=== PATIENT | female | born 1950 | race Caucasian/White ===

== ENCOUNTER → 2017-12-31 09:27 | Outpatient (CLI) | payer MEDICARE, SELFPAY ==
--- NOTE | 2017-12-31 | XR_ITS ---
XR wrist RT min 3V COMPARISON: None HISTORY: Right wrist pain after a fall TECHNIQUE: AP lateral and oblique views FINDINGS: There is mild spurring of the ulnar side of the trapezium bone and mild spurring at the base of first metacarpal. The carpal bones all appear intact with no fracture seen. The soft tissues are normal, the pronator quadratus fat pad is seen which is a normal finding. IMPRESSION: Minor arthritic changes at the first carpometacarpal joint, no fracture seen
[2017-12-31 10:18] LABS: Hemoglobin A1C 6.4 % (0.0-7.0)
[2017-12-31 11:02] LABS: Alanine Aminotransferase 32 U/L (12-78); Albumin Level 3.9 gm/dL (3.4-5.0); Albumin/Globulin Ratio 1.1 (1.1-1.8); Alkaline Phosphatase 78 U/L (46-116); Anion Gap 16.2 mEq/L (5-15); Aspartate Amino Transferase 14 U/L (15-37); Bilirubin,Total 0.5 mg/dL (0.2-1.0); Blood Urea Nitrogen 20 mg/dL (7-18); Calcium 9.1 mg/dL (8.5-10.1); Carbon Dioxide 25 mmol/L (21.0-32.0); Chloride 105 mmol/L (98-107); Chol/HDL Ratio 4.2 (1-3.5); Cholesterol 157 mg/dL (140-200); Creatinine,Serum 0.78 mg/dL (0.55-1.02); Estimated Glomerular Filt Rate 74 ml/min (>60); GFR (African American) 89 ML/MIN (>60); Globulin 3.5 gm/dl (1.3-3.2); Glucose 153 mg/dL (74-106); HDL Cholesterol 37 mg/dL (29-89); LDL Cholesterol 58 mg/dL (0-130); Potassium 4.2 mmoL/L (3.5-5.1); Sodium 142 mmol/L (136-145); Total Protein,Serum 7.4 gm/dL (6.4-8.2); Triglycerides 310 mg/dL (30-200); VLDL Cholesterol 62 mg/dL (0-40)
[2018-01-01 17:17] LABS: Microalbumin, Urine 3.3 ug/mL (Not Estab.)
== END ==
PROVIDERS: PCP Internal Medicine; Visit Provider Internal Medicine
DX: E11.42 Type 2 diabetes mellitus with diabetic polyneuropathy (principal); I10 Essential (primary) hypertension; E78.5 Hyperlipidemia, unspecified; R10.11 Right upper quadrant pain; M25.531 Pain in right wrist
CPT/HCPCS: 36415; 73110; 80053; 80061; 82043; 83036

== ENCOUNTER → 2018-01-26 08:38 | Outpatient (CLI) | payer MEDICARE, SELFPAY ==
--- NOTE | 2018-01-26 08:42 | CT_ITS ---
CT abdomen pelvis w con CLINICAL INDICATION: ITS.REASON: RUQ PAIN, POSSIBLE HERNIA ORDERING PHYSICIAN: Ronan Fink MD PATIENT AGE: 67 years COMPARISON: 03/07/2013 TECHNIQUE: Axial images obtained with sagittal and coronal reformats. All CT scans at the facility use one or more dose reduction, viz: automated exposure control; ma/kV adjustment per patient size (including targeted exams where dose is matched to indication; i.e. head); or iterative reconstruction technique. PROCEDURE: Oral Contrast: Redicat IV Contrast: 75 mL's of Isovue-370 . FINDINGS: There is a 6 mm noncalcified nodule in left lung base laterally not significant changed. Mild hepatic steatosis with slight increased density is present in the hepatic dome the right hepatic lobe probably related to differential perfusion. No focal liver lesion is evident. There has been prior cholecystectomy. Spleen is unremarkable. There are bilateral adrenal nodules measuring up to 2 cm x 2 cm on the left and 2 cm x 1.2 cm on the right. Not significantly changed consistent with adenomas. The pancreas is unremarkable. No hydronephrosis or obstructing renal or ureteral calculi. The right kidney is slightly low lying. There is a mildly prominent right lobe of the liver. There has been a prior cholecystectomy. The patient's abdominal wall is somewhat redundant folding toward the right. No definite abdominal wall hernia however is evident. No intestinal obstruction or free air. Prior hysterectomy. No pelvic mass or focal inflammatory change. No evidence of appendicitis or diverticulitis. No acute bony anomalies. IMPRESSION: 1. No acute finding. No evidence of abdominal wall hernia. 2. Stable bilateral adrenal nodules. 3. Small area wedge shaped enhancement in the hepatic dome probably related to differential flow phenomenon
== END ==
PROVIDERS: Family Provider Internal Medicine; PCP Internal Medicine; Visit Provider Surgery
DX: K43.2 Incisional hernia without obstruction or gangrene (principal); R10.11 Right upper quadrant pain
CPT/HCPCS: 36415; 74177; 82565; 84520; Q9967

== ENCOUNTER → 2018-08-14 10:29 | Outpatient (CLI) | payer MEDICARE, SELFPAY | PROVIDERS: PCP Internal Medicine; Visit Provider Colon & Rectal Surgery | DX: Z01.810 Encounter for preprocedural cardiovascular examination (principal); K62.89 Other specified diseases of anus and rectum; E11.59 Type 2 diabetes mellitus with other circulatory complications | CPT/HCPCS: 93005 ==

== ENCOUNTER → 2018-08-29 08:39 | Outpatient (CLI) | payer MEDICARE, SELFPAY ==
[2018-08-29 09:53] LABS: Hemoglobin A1C 6.8 % (0.0-7.0)
[2018-08-29 12:02] LABS: Alanine Aminotransferase 27 U/L (12-78); Albumin Level 3.8 gm/dL (3.4-5.0); Albumin/Globulin Ratio 1.1 (1.1-1.8); Alkaline Phosphatase 84 U/L (46-116); Aspartate Amino Transferase 18 U/L (15-37); Bilirubin,Total 0.6 mg/dL (0.2-1.0); Blood Urea Nitrogen 18 mg/dL (7-18); Calcium 9.1 mg/dL (8.5-10.1); Carbon Dioxide 27 mmol/L (21.0-32.0); Chloride 103 mmol/L (98-107); Chol/HDL Ratio 4.3 (1-3.5); Cholesterol 165 mg/dL (140-200); Creatinine,Serum 0.72 mg/dL (0.55-1.02); Estimated Glomerular Filt Rate 81 ml/min (>60); GFR (African American) 98 ML/MIN (>60); Globulin 3.4 gm/dl (1.3-3.2); Glucose 150 mg/dL (74-106); HDL Cholesterol 38 mg/dL (29-89); LDL Cholesterol 66 mg/dL (0-130); Sodium 142 mmol/L (136-145); Total Protein,Serum 7.2 gm/dL (6.4-8.2); Triglycerides 306 mg/dL (30-200); VLDL Cholesterol 61 mg/dL (0-40)
[2018-08-30 15:59] LABS: Microalbumin, Urine 6.8 ug/mL (Not Estab.)
== END ==
PROVIDERS: PCP Internal Medicine; Visit Provider Internal Medicine
DX: E11.42 Type 2 diabetes mellitus with diabetic polyneuropathy (principal); E78.5 Hyperlipidemia, unspecified; I10 Essential (primary) hypertension
CPT/HCPCS: 36415; 80053; 80061; 82043; 83036

== ENCOUNTER → 2018-10-26 08:47 | Outpatient (CLI) | payer MEDICARE, SELFPAY ==
--- NOTE | 2018-10-26 08:55 | MM_ITS ---
MM Dig screening mamm BI w/CAD CAD Screening COMPARISON: Digital right mammogram 05/04/2017 and bilateral digital mammograms with CAD 04/21/2017 INDICATION: There is no personal or family history of breast cancer. TECHNIQUE: Standard CC and MLO images were obtained. R2 CAD reviewed. FINDINGS: The breasts are composed primarily of fat with minimal scattered benign-appearing calcifications in each breast. Minimal fibroglandular densities are seen in the subareolar regions of each breast. There is a biopsy clip deep to the nipple right breast from the recent biopsy for benign disease. There is a mole marker left breast. There is a stable benign-appearing nodular density upper outer quadrant left breast. There is no suspicious lesion and no suspicious microcalcifications. IMPRESSION: Fatty type breast parenchyma with no suspicious lesion seen BI-RADS Category: 2 Benign Finding(s) RECOMMENDED FOLLOW-UP: 1YR - 1 YEAR FOLLOW-UP (A letter has been sent to the patient regarding results of the study.)
== END ==
PROVIDERS: PCP Internal Medicine; Visit Provider Internal Medicine
DX: Z12.31 Encounter for screening mammogram for malignant neoplasm of breast (principal)
CPT/HCPCS: 77067

== ENCOUNTER → 2019-01-01 15:07 | Outpatient (CLI) | payer MEDICARE, SELFPAY ==
--- NOTE | 2019-01-01 15:17 | XR_ITS ---
XR knee LT 3V HISTORY: ITS.REASON: LEFT KNEE PAIN ORDERING PHYSICIAN: Issa Ribera PATIENT AGE: 68 years COMPARISON: 07/03/2013 FINDINGS: There are mild osteoarthritic changes of the medial compartment and patellofemoral joint. No acute fracture or dislocation. No lytic or blastic change. IMPRESSION: Mild osteoarthritis not significantly changed
== END ==
PROVIDERS: PCP Internal Medicine; Visit Provider Internal Medicine
DX: M25.562 Pain in left knee (principal)
CPT/HCPCS: 73562

== ENCOUNTER → 2019-03-06 09:10 | Outpatient (CLI) | payer MEDICARE, SELFPAY ==
--- NOTE | 2019-03-06 09:33 | XR_ITS ---
XR chest 2V HISTORY: Tuberculosis, history of TB ITS.REASON: H/O TB ORDERING PHYSICIAN: Sylvia Riley PATIENT AGE: 69 years COMPARISON: 12/31/2016 FINDINGS: The cardiomediastinal silhouette and pulmonary vascularity are within normal limits. The lungs are clear without infiltrates, suspicious nodules, or pleural effusions. No acute bony abnormalities. IMPRESSION: No change with no acute finding
[2019-03-06 09:57] LABS: Basophils # 0.1 K/mm3 (0-0.2); Eosinophils # 0.1 K/mm3 (0.0-0.4); Eosinophils % 0.9 % (0.1-12.0); Hematocrit 41.4 % (37.0-47.0); Hemoglobin 13.7 g/dL (12.2-16.2); Lymphocytes # 2.4 K/mm3 (0.7-4.5); Lymphocytes % 35.6 % (10-50); Mean Corpuscular HGB Conc 33.1 g/dL (31.8-35.4); Mean Corpuscular Hemoglobin 28.6 pg (27.0-31.2); Mean Corpuscular Volume 86.4 fl (81-99); Monocytes # 0.3 K/mm3 (0.1-1.0); Monocytes % 4.6 % (1.7-9.3); Neutrophils # 3.8 K/mm3 (1.8-7.8); Neutrophils % 57.9 % (37.0-80.0); Platelet Count 199 K/mm3 (142-424); Red Cell Distribution Width 12.8 % (11.5-17.5); White Blood Count 6.6 K/mm3 (4.8-10.8)
[2019-03-06 22:11] LABS: Blood Urea Nitrogen 17 mg/dL (7-18); Calcium 9.2 mg/dL (8.5-10.1); Carbon Dioxide 25 mmol/L (21.0-32.0); Chloride 105 mmol/L (98-107); Creatinine,Serum 0.76 mg/dL (0.55-1.02); Estimated Glomerular Filt Rate 76 ml/min (>60); GFR (African American) 92 ML/MIN (>60); Glucose 152 mg/dL (74-106); Sodium 143 mmol/L (136-145)
== END ==
PROVIDERS: PCP Internal Medicine; Visit Provider Colon & Rectal Surgery
DX: K62.5 Hemorrhage of anus and rectum (principal)
CPT/HCPCS: 36415; 71046; 80048; 85025; 93005

== ENCOUNTER → 2019-03-09 09:45 | Outpatient (CLI) | payer MEDICARE, SELFPAY ==
--- NOTE | 2019-03-09 09:47 | US_ITS ---
US abdomen limited History:Abdominal pain Ordering Physician:Issa Ribera Patient Age: 69 years Comparison:None Findings: Pancreas:Unremarkable. No obvious mass or abnormal fluid collection. No ductal dilatation Liver:Fatty liver. No focal liver lesions demonstrated Right Kidney:There is cortical atrophy of the right kidney. No hydronephrosis Gallbladder:Prior cholecystectomy Impression:Fatty liver, status post cholecystectomy, otherwise negative right upper quadrant ultrasound
== END ==
PROVIDERS: PCP Internal Medicine; Visit Provider Internal Medicine
DX: R10.11 Right upper quadrant pain (principal); R11.0 Nausea
CPT/HCPCS: 76705

== ENCOUNTER → 2019-06-12 11:00 | Outpatient (CLI) | payer MEDICARE, SELFPAY ==
--- NOTE | 2019-06-12 11:12 | XR_ITS ---
XR finger RT min 2V CLINICAL INDICATION: Follow-up surgery ITS.REASON: right middle digit sx follow up ORDERING PHYSICIAN: Frankie Falcon MD PATIENT AGE: 69 years Comparison: 04/26/2019 FINDINGS: Previously noted flexion of the DIP has improved. Mild osteoarthritic changes are present at the DIP. There is a lucency noted along the radial and proximal aspect of the distal phalanx which could be due to a nondisplaced fracture IMPRESSION: Improvement in the flexion deformity at the DLP joint with possible nondisplaced fracture of the distal phalanx
== END ==
PROVIDERS: PCP Internal Medicine; Visit Provider Orthopaedic Surgery
DX: S61.401A Unspecified open wound of right hand, initial encounter; S66.821A Laceration of other specified muscles, fascia and tendons at wrist and hand level, right hand, initial encounter
CPT/HCPCS: 73140

== ENCOUNTER → 2021-08-03 20:41 | Outpatient (CLI) | payer MEDICARE, SELFPAY ==
[2021-08-03 20:54] LABS: Basophils # 0.1 K/mm3 (0-0.2); Eosinophils # 0.1 K/mm3 (0.0-0.4); Eosinophils % 1.2 % (0.1-12.0); Hematocrit 40.3 % (37.0-47.0); Hemoglobin 12.9 g/dL (12.2-16.2); Lymphocytes # 2.6 K/mm3 (0.7-4.5); Lymphocytes % 35.8 % (10-50); Mean Corpuscular Volume 90.4 fl (81-99); Mean Platelet Volume 10.3 fl (7.4-10.4); Monocytes # 0.4 K/mm3 (0.1-1.0); Monocytes % 6.1 % (1.7-9.3); Neutrophils # 4.1 K/mm3 (1.8-7.8); Neutrophils % 55.8 % (37.0-80.0); Platelet Count 229 K/mm3 (142-424); Red Blood Count 4.46 M/mm3 (4.20-5.40); Red Cell Distribution Width 13.4 % (11.5-17.5); White Blood Count 7.3 K/mm3 (4.8-10.8)
[2021-08-03 21:13] LABS: Hemoglobin A1C 7.1 % (4.0-6.0)
[2021-08-03 21:49] LABS: Chloride 106 mmol/L (98-107); Potassium 4.2 mmoL/L (3.5-5.1); Sodium 142 mmol/L (136-145)
[2021-08-03 21:51] LABS: Amylase 39 U/L (30-110); Blood Urea Nitrogen 16 mg/dl (7-17); Estimated Glomerular Filt Rate 83 ml/min (>60); GFR (African American) 100 ML/MIN (>60)
[2021-08-03 21:52] LABS: Alanine Aminotransferase 15 U/L (12-78); Albumin Level 3.8 g/dl (3.5-5.0); Albumin/Globulin Ratio 1.4 (1.1-1.8); Alkaline Phosphatase 88 U/L (38-126); Anion Gap 12.2 mEq/L (5-15); Aspartate Amino Transferase 20 U/L (14-36); Bilirubin,Total 0.3 mg/dl (0.2-1.3); Calcium 8.7 mg/dl (8.4-10.2); Carbon Dioxide 28 mmol/L (22.0-30.0); Globulin 2.7 g/dL (1.3-3.2); Glucose 146 mg/dl (74-100); Total Protein,Serum 6.5 g/dl (6.3-8.2)
== END ==
PROVIDERS: Visit Provider Internal Medicine
DX: R10.13 Epigastric pain (principal); E11.42 Type 2 diabetes mellitus with diabetic polyneuropathy
CPT/HCPCS: 80053; 82150; 83036; 85025

== ENCOUNTER → 2021-09-14 11:07 | Outpatient (CLI) | payer MEDICARE, SELFPAY | PROVIDERS: Visit Provider Surgery | DX: Z01.812 Encounter for preprocedural laboratory examination (principal); Z11.52 Encounter for screening for COVID-19; Z13.810 Encounter for screening for upper gastrointestinal disorder; R10.13 Epigastric pain | CPT/HCPCS: C9803; U0003; U0005 ==

== ENCOUNTER → 2021-09-16 11:14 | Day surgery (SDC) | payer MEDICARE, SELFPAY ==
[2021-09-14 12:18] VITALS: BMI 38.6
[2021-09-16 11:44] VITALS: BP 133/74; PULSE 64; RESP 18; TEMP 36.6; O2SAT 96
--- NOTE | 2021-09-16 12:03 | P.PN_ITS ---
[facility] Anesthesia Checklist - Patient Identification Patient Identification: Arm Band - Structural Data Admitted From: Home Planned Operative Procedure/s: egd Consent for Planned Operative Procedure(s) Verified: Yes Verified Documents: Surgical Consent, History and Physical - NPO Status Verified Time NPO: 00:00 - Additional verifications Anesthesia Reactions: No Hx Blood Transfusions: No Blood Transfusion Reaction: No - Airway Assessment C-Spine Mobility Assessed: Yes (mp2) TMJ Mobility Assessed: Yes Dentition: Good Dentition (lower. upper edentulous) - Neurological Assessment Level of Consciousness: Awake, Alert - Anesthesia Plan Anesthesia Risk discussed: Yes Anesthesia Plan: Verified ASA Class: III Anesthesia Type: MAC [facility] History I have reviewed the patient's past medical history: Yes Medical History: Reports:: Diabetes Mellitus Type 2, Hiatal Hernia, Hyperlipidemia, Hypertension Denies:: Cancer, Diabetes Mellitus Type 1, Internal Pacemaker, MRSA, Seizures *Have you ever received a pneumonia vaccine?: No *Have you received a flu vaccine this season?: No Other Medical History: Denies: Blood Transfusion Reaction Anesthesia experience/problems:: nac Laterality Cases: Right: Other Other Surgeries: Yes: Colonoscopy. No: Pacemaker Amputation: No Fractures: No - *Social History Last grade of school completed: High school graduate Smoking Status: Never smoker Alcohol Intake: never Alcohol Intake Frequency:: other Substance Use Type: denies use *Occupational Status:: retired Housing: house Household Members: spouse *Travel in the last 8 weeks: Inside the [facility] Family Hx:: Cancer
[2021-09-16 12:06] VITALS: O2SAT 98
[2021-09-16 12:17] VITALS: BP 136/74; PULSE 68; RESP 18; TEMP 36.1; O2SAT 93
--- NOTE | 2021-09-16 12:18 | HMH.SCOPE ---
- Procedure: Date: 09/16/21 Patient Date of :: 1950 Procedure Performed:: Esophagogastroduodenoscopy with biopsies Indications:: Patient is a 71-year-old female referred by Dr. Issa Ribera for upper endoscopy. I had previously seen her years ago for right upper quadrant pain with possible recurrent incisional hernia. She had undergone open cholecystectomy many years ago and had an incisional hernia repair by Dr. Drake. She describes postprandial epigastric pain. This occurs about 10 to 15 minutes postprandially. There are no particular foods which seem to be more problematic. She does state that she has a hiatal hernia and wonders if this is the issue. She describes some epigastric soreness. She states that this is been ongoing for 2 months. Interestingly, the patient states that she had a prescription called in for possible: Bowel prep. She has undergone multiple colonoscopies and upper endoscopy. Previous endoscopic procedures are as follows: 11/26/2004: EGD by Dr. Drake which revealed hiatal hernia for dysphagia 02/13/2009: Colonoscopy by Dr. Drake which was normal 06/27/2014: EGD by Dr. Drake which was normal. 09/05/2014: Colonoscopy by Dr. Drake which was normal 01/17/2017: Colonoscopy by Brown Sanders MD which revealed multiple polyps, diverticulosis, anal fissure with mild anal stenosis, internal hemorrhoids which were banded. Repeat colonoscopy was recommended in 3 years. Plan was made to proceed with upper endoscopy. Patient is due for colonoscopy based on previous colonoscopy by Dr. Sanders 4 years ago but she wishes to wait a couple of months for this. Performing Provider:: Ronan Fink MD Referring Provider:: Issa Ribera MD Sedation:: MAC sedation Procedure:: Patient was taken to endoscopy procedure room. She was positioned in lateral decubitus position. Adequate intravenous sedation was achieved with anesthesia titration of propofol. Olympus endoscope was inserted via the oropharynx. Esophagus was cannulated. Overall esophagus appeared unremarkable. Gastroesophageal junction was encountered at approximately 37 cm from the incisors. Stomach was cannulated and insufflated. Retroflexion revealed extremely small hiatal hernia, virtually inconsequential. There was some diffuse moderate nonerosive gastritis and gastropathy. She had findings of prepyloric submucosal nodules possibly consistent with adenopathy. Gastric antral mucosal biopsy was obtained for CLOtest for H. pylori. Pylorus was traversed. Duodenum appeared unremarkable. Endoscope was withdrawn into the gastric lumen. Multiple biopsies were obtained within the antrum of the submucosal nodules . Additional biopsies obtained of the mid gastric body. Multiple biopsies were obtained of the gastroesophageal junction to assess for findings of Devi's esophagus. Stomach was desufflated and the scope was withdrawn. Findings:: Moderate nonerosive gastritis with gastropathy with some slight mucosal antral nodularity possibly consistent with lymphadenopathy Extremely tiny hiatal hernia Recommendations:: Plan to follow-up on the biopsy results and treat appropriately Complications:: None immediately apparent Estimated blood obtained (mL): 3
[2021-09-16 12:25] VITALS: BP 130/77; PULSE 63; RESP 18; O2SAT 98
[2021-09-16 12:35] VITALS: BP 136/78; PULSE 64; RESP 18; O2SAT 98
[2022-08-05 10:54] LABS: POC Glucose,Bedside 113 (70-110)
== END ==
PROVIDERS: PCP Internal Medicine; Visit Provider Surgery
PROC: 0DJ08ZZ Inspection of Upper Intestinal Tract, Via Natural or Artificial Opening Endoscopic (ICD-10-PCS; CPT 43235; principal; 2021-09-16 12:30)
DX: K29.60 Other gastritis without bleeding (principal); K31.9 Disease of stomach and duodenum, unspecified; R59.0 Localized enlarged lymph nodes; K44.9 Diaphragmatic hernia without obstruction or gangrene; Z90.49 Acquired absence of other specified parts of digestive tract; Z86.010 Personal history of colon polyps; E11.9 Type 2 diabetes mellitus without complications; E78.5 Hyperlipidemia, unspecified; I10 Essential (primary) hypertension; Z80.9 Family history of malignant neoplasm, unspecified; Z88.1 Allergy status to other antibiotic agents; Z79.899 Other long term (current) drug therapy
CPT/HCPCS: 43239; 82962; 87339; 88305

== ENCOUNTER → 2022-01-25 11:38 | Outpatient (CLI) | payer MEDICARE, SELFPAY ==
[2022-01-27 04:10] LABS: H. pylori Stool Ag, EIA Negative (Negative)
== END ==
PROVIDERS: Visit Provider Surgery
DX: R10.11 Right upper quadrant pain (principal)
CPT/HCPCS: 87338

== ENCOUNTER → 2022-03-17 16:29 | Outpatient (CLI) | payer MEDICARE, SELFPAY | PROVIDERS: PCP Internal Medicine; Visit Provider Surgery | DX: Z01.812 Encounter for preprocedural laboratory examination (principal); Z11.52 Encounter for screening for COVID-19; Z12.11 Encounter for screening for malignant neoplasm of colon | CPT/HCPCS: C9803; U0003; U0005 ==

== ENCOUNTER 2022-03-19 10:33 | Day surgery (SDC) | payer MEDICARE, SELFPAY ==
[2022-03-19 10:49] VITALS: BP 144/83; PULSE 66; RESP 18; TEMP 36.7; O2SAT 95; BMI 38.7
--- NOTE | 2022-03-19 10:56 | P.PCN_ITS ---
- Procedure: Date: 03/19/22 Patient Date of :: 1950 Procedure Performed:: Total colonoscopy to terminal ileum with polypectomy using snare and biopsy Indications:: Patient presents for colonoscopy. She is a 72-year-old female whom I had performed EGD after referral by Dr. Issa Ribera.? I had previously seen her years ago for right upper quadrant pain with possible recurrent incisional hernia.? She had undergone open cholecystectomy many years ago and had an incisional hernia repair by Dr. Drake.? She had some postprandial epigastric pain occurring approximately 10-15 minutes postprandially with some epigastric soreness.? She has undergone multiple colonoscopies and upper endoscopy.? Previous endoscopic procedures are as follows: 11/26/2004: EGD by Dr. Drake which revealed hiatal hernia 02/13/2009: Colonoscopy by Dr. Drake which was normal 06/27/2014: EGD by Dr. Drake which was normal. 09/05/2014: Colonoscopy by Dr. Drake which was normal 01/17/2017: Colonoscopy by Brown Sanders MD which revealed multiple (FIVE) mushtaq yps ranging in size from 5-9mm (pathology revealed all of these to be tubular adenomas), diverticulosis, anal fissure with mild anal stenosis, internal hemorrhoids which were banded.? Repeat colonoscopy was recommended in 3 years. That was 5 years ago. EGD performed on 09/16/2021 revealed extremely small hiatal hernia, H. pylori gastritis, biopsy proven reflux esophagitis. Patient was given a course of H. pylori eradication therapy. Follow-up stool for H. pylori is negative. Previous discussion was held with the patient months ago regarding her need for colonoscopy (as she was passed due) based on colonoscopy done January 2017 at which time 3-year follow-up was recommended. She wished to wait several months. Performing Provider:: Ronan Fink MD Referring Provider:: Issa Ribera MD Sedation:: MAC sedation Procedure:: Patient was taken to endoscopy procedure room. She was positioned in lateral decubitus position. Adequate intravenous sedation was achieved with anesthesia titration propofol. Digital examination was performed which revealed some mild anal stenosis. Variable stiffness Olympus colonoscope was inserted via the anus. Is advanced to the cecum. This did require some abdominal pressure due to significant redundancy/floppiness of the sigmoid colon. Ileocecal valve and appendiceal orifice were clearly identified. Colonoscope was slowly withdrawn through the colon with careful surveillance. In the descending colon there was a moderate 6 to 8 mm adenomatous appearing polyp removed with cutting snare. In the sigmoid colon there was a possible polyp versus traction polyp removed with cutting snare. In the distal sigmoid colon there was a small polyp removed with cutting snare with residual polypoid tissue removed with biopsy forceps. She had some sigmoid diverticulosis. Retroflexion within the rectum revealed possible, probable, anal papilla. To rule out adenomatous change this was biopsied with biopsy forceps and labeled anorectal lesion . Colonoscope was withdrawn. Findings:: Redundancy of sigmoid colon Adenomatous descending polyp Possible sigmoid polyp Distal sigmoid polyp Anorectal papilla, biopsy Diverticulosis Anal stenosis Recommendations:: Follow-up colonoscopy pending pathology. Likely 3 to 5 years. Complications:: None immediately apparent Estimated blood obtained (mL): 2
[2022-03-19 11:03] LABS: POC Glucose,Bedside 129 (70-110)
[2022-03-19 11:04] VITALS: O2SAT 95
--- NOTE | 2022-03-19 11:08 | HMH.ANESCL ---
[facility] Anesthesia Checklist - Patient Identification Patient Identification: Arm Band - Structural Data Admitted From: Home Planned Operative Procedure/s: Colonoscopy Consent for Planned Operative Procedure(s) Verified: Yes - NPO Status Verified Time NPO: 00:00 - Additional verifications Anesthesia Reactions: No Hx Blood Transfusions: No Blood Transfusion Reaction: No - Airway Assessment C-Spine Mobility Assessed: Yes TMJ Mobility Assessed: Yes Dentition: Poor Dentition - Neurological Assessment Level of Consciousness: Awake Hx Seizures: No Numbness or tingling in extremities: No - Anesthesia Plan Anesthesia Risk discussed: Yes Anesthesia Plan: Verified ASA Class: III Anesthesia Type: MAC [facility] History I have reviewed the patient's past medical history: Yes Medical History: Reports:: Cerebrovascular Accident, Diabetes Mellitus Type 2, Hiatal Hernia, Hyperlipidemia, Hypertension Denies:: Cancer, Diabetes Mellitus Type 1, Internal Pacemaker, MRSA, Seizures *Have you ever received a pneumonia vaccine?: No *Have you received a flu vaccine this season?: Yes Other Medical History: Denies: Blood Transfusion Reaction Anesthesia experience/problems:: None Laterality Cases: Right: Other Other Surgeries: Yes: Colonoscopy. No: Pacemaker Amputation: No Fractures: No - *Social History Last grade of school completed: High school graduate Smoking Status: Never smoker Alcohol Intake: never Alcohol Intake Frequency:: other Substance Use Type: denies use *Occupational Status:: retired Housing: house Household Members: spouse *Travel in the last 8 weeks: None Family Hx:: Cancer, Diabetes
[2022-03-19 11:50] VITALS: BP 94/63; PULSE 65; RESP 18; TEMP 36.4; O2SAT 92
[2022-03-19 12:00] VITALS: BP 125/85; PULSE 65; RESP 18; O2SAT 96
[2022-03-19 12:18] VITALS: BP 116/79; PULSE 66; RESP 18; O2SAT 97
== END 2022-03-19 12:18 | disposition home or self-care (01) ==
LOC: OUTP 10:35
PROVIDERS: PCP Internal Medicine; Visit Provider Surgery
PROC: 0DJD8ZZ Inspection of Lower Intestinal Tract, Via Natural or Artificial Opening Endoscopic (ICD-10-PCS; principal; 2022-03-19 11:30)
DX: Z12.11 Encounter for screening for malignant neoplasm of colon (principal); D12.8 Benign neoplasm of rectum; K62.4 Stenosis of anus and rectum; K63.5 Polyp of colon; K57.30 Diverticulosis of large intestine without perforation or abscess without bleeding; K56.2 Volvulus; Z86.010 Personal history of colon polyps; Z87.19 Personal history of other diseases of the digestive system; E11.9 Type 2 diabetes mellitus without complications; E78.5 Hyperlipidemia, unspecified; I10 Essential (primary) hypertension; Z80.9 Family history of malignant neoplasm, unspecified; Z86.73 Personal history of transient ischemic attack (TIA), and cerebral infarction without residual deficits; Z88.1 Allergy status to other antibiotic agents; Z79.899 Other long term (current) drug therapy
CPT/HCPCS: 45380; 45385; 82962; 88305

== ENCOUNTER → 2022-04-17 08:08 | Outpatient (CLI) | payer MEDICARE, SELFPAY ==
[2022-04-17 09:06] LABS: Basophils # 0.1 K/mm3 (0-0.2); Basophils % 1.6 % (0.1-2.0); Eosinophils # 0.1 K/mm3 (0.0-0.4); Eosinophils % 1.3 % (0.1-12.0); Hematocrit 42.8 % (37.0-47.0); Hemoglobin 14.2 g/dL (12.2-16.2); Lymphocytes % 33.7 % (10-50); Mean Corpuscular HGB Conc 33.2 g/dL (31.8-35.4); Mean Corpuscular Hemoglobin 29.3 pg (27.0-31.2); Mean Corpuscular Volume 88.5 fl (81-99); Mean Platelet Volume 9.6 fl (7.4-10.4); Monocytes # 0.3 K/mm3 (0.1-1.0); Monocytes % 5.2 % (1.7-9.3); Neutrophils # 3.5 K/mm3 (1.8-7.8); Neutrophils % 58.2 % (37.0-80.0); Platelet Count 192 K/mm3 (142-424); Red Blood Count 4.84 M/mm3 (4.20-5.40); Red Cell Distribution Width 13.4 % (11.5-17.5)
[2022-04-17 09:41] LABS: Chloride 105 mmol/L (98-107); Potassium 4.2 mmoL/L (3.5-5.1); Sodium 142 mmol/L (136-145)
[2022-04-17 09:44] LABS: Anion Gap 10.2 mEq/L (5-15); Blood Urea Nitrogen 9 mg/dl (7-17); Carbon Dioxide 31 mmol/L (22.0-30.0); Estimated Glomerular Filt Rate 99 ml/min (>60); GFR (African American) 119 ML/MIN (>60)
[2022-04-17 09:45] LABS: Calcium 9.2 mg/dl (8.4-10.2); Glucose 178 mg/dl (74-100)
== END ==
PROVIDERS: PCP Internal Medicine; Visit Provider Surgery
DX: K62.9 Disease of anus and rectum, unspecified (principal); S61.401A Unspecified open wound of right hand, initial encounter; S66.821A Laceration of other specified muscles, fascia and tendons at wrist and hand level, right hand, initial encounter; Z01.812 Encounter for preprocedural laboratory examination; Z20.822 Contact with and (suspected) exposure to COVID-19
CPT/HCPCS: 36415; 80048; 85025; C9803; U0003; U0005

== ENCOUNTER 2022-04-19 09:43 | Day surgery (SDC) | payer MEDICARE, SELFPAY ==
[2022-04-14 13:20] VITALS: BMI 39.4
[2022-04-19] VITALS (12 sets, daily range): BP systolic 121–171; BP diastolic 68–97; PULSE 69–104; RESP 16–22; TEMP 36.6–36.8; O2SAT 92–98
[2022-04-19 10:24] LABS: POC Glucose,Bedside 134 (70-110)
--- NOTE | 2022-04-19 11:40 | P.PN_ITS ---
[facility] Anesthesia Checklist - Patient Identification Patient Identification: Arm Band - Structural Data Admitted From: Home Planned Operative Procedure/s: Transanal Excision of Rectal Lesion Consent for Planned Operative Procedure(s) Verified: Yes Verified Documents: Surgical Consent, History and Physical - NPO Status Verified Time NPO: 00:00 - Additional verifications Anesthesia Reactions: No Hx Blood Transfusions: No Blood Transfusion Reaction: No - Airway Assessment C-Spine Mobility Assessed: Yes (mp2) TMJ Mobility Assessed: Yes Dentition: Edentulous - Neurological Assessment Level of Consciousness: Awake, Alert - Anesthesia Plan Anesthesia Risk discussed: Yes Anesthesia Plan: Verified ASA Class: II Anesthesia Type: General [facility] History I have reviewed the patient's past medical history: Yes Medical History: Reports:: Cerebrovascular Accident, Diabetes Mellitus Type 2, Hiatal Hernia, Hyperlipidemia, Hypertension, MRSA Denies:: Cancer, Diabetes Mellitus Type 1, Internal Pacemaker, Seizures *Have you ever received a pneumonia vaccine?: Yes *Have you received a flu vaccine this season?: Yes Other Medical History: Denies: Blood Transfusion Reaction Anesthesia experience/problems:: nac Laterality Cases: Right: Other Other Surgeries: Yes: Cholecystectomy, Colonoscopy, Hysterectomy-Total, Other. No: Pacemaker Amputation: No Fractures: Yes (LT ANKLE) - *Social History Last grade of school completed: Some college Smoking Status: Never smoker Alcohol Intake: never Alcohol Intake Frequency:: other Substance Use Type: denies use *Occupational Status:: retired Housing: house Household Members: spouse *Travel in the last 8 weeks: None Family Hx:: Cancer, Diabetes
--- NOTE | 2022-04-19 13:42 | HMH.OPNOTE ---
Date of procedure: 04/19/22 Pre-op Diagnosis:: Intranasal papilloma Post-op Diagnosis:: Same Procedure performed:: Transanal excision of intra-anal lesion Surgeon:: Ronan Fink MD ESCALATOR INSTALLER:: Phuc Parmar Anesthesia: LMA Estimated blood loss (mL): 15 Clinical Note:: Patient presents for transanal excision of intra-anal lesion.? She is a 72-year-old female whom I had performed EGD after referral by Dr. Issa Ribera.? I had previously seen her years ago for right upper quadrant pain with possible recurrent incisional hernia.? She had undergone open cholecystectomy many years ago and had an incisional hernia repair by Dr. Drake.? She had some postprandial epigastric pain occurring approximately 10-15 minutes postprandially with some epigastric soreness.? She has undergone multiple colonoscopies and upper endoscopy.? Previous endoscopic procedures are as follows: 11/26/2004:? EGD by Dr. Drake which revealed hiatal hernia 02/13/2009:? Colonoscopy by Dr. Drake which was normal 06/27/2014:? EGD by Dr. Drake which was normal. 09/05/2014:? Colonoscopy by Dr. Drake which was normal 01/17/2017:? Colonoscopy by Brown Sanders MD which revealed multiple (FIVE) polyps ranging in size from 5-9mm (pathology revealed all of?these to be tubular adenomas), diverticulosis, anal fissure with mild anal stenosis, internal hemorrhoids which were banded.? Repeat colonoscopy was recommended in 3 years. That was 5 years ago. EGD performed on 09/16/2021 revealed extremely small hiatal hernia, H. pylori gastritis, biopsy proven reflux esophagitis. Patient was given a course of H. pylori eradication therapy.? Follow-up stool for H. pylori is negative.? She recently was seen in the office after recent colonoscopy. Colonoscopy was done on 03/19/2022. She was found to have some redundancy of the sigmoid colon. She had a tubular adenoma in the descending colon, sigmoid hyperplastic polyp, distal sigmoid tubular adenoma. There was a anorectal lesion which was biopsied and this returned as papilloma. She also has some anal stenosis and diverticulosis. The options were discussed with the patient when she was seen in the office. Given the fact that this returned as papilloma and not anal papilla plan was made to proceed with simple transanal excision. Operative findings:: Significant anal stenosis. Intra-anal lesion Operative note:: Patient was taken the operating room. She was positioned in supine position. General anesthesia was induced via LMA. She was repositioned in lithotomy position. Perineum was prepped and draped in the standard surgical fashion. Digital examination was performed which revealed some appreciable anal stenosis. [place] anoscope was inserted. She had some significant anal stenosis. In the left posterior lateral location there was an intra-anal lesion as previously noted on colonoscopy. Exposure was difficult due to her significant anal stenosis. There was some unavoidable tear of the anoderm due to the significantly listlessness. The lesion was grasped and excised with Metzenbaum scissors. All sent off as a specimen. The distal rectal mucosa at the site of the excision was closed with running 3-0 chromic locking suture. A couple of [id number] chromic sutures were placed as well. This resulted in good hemostasis. Local anesthetic was infiltrated. Rolled Gelfoam soaked in topical hemostatic was inserted into the anorectal canal. Absorbent pad was applied. Patient tolerated procedure well no complications. Condition: stable Disposition: PACU Specimens:: Anal lesion Complications:: None immediately apparent
--- NOTE | 2022-04-19 13:46 | P.PN_ITS ---
[facility] Anesthesia Record Part I Intake, IV Amount: 600 Estimated blood loss (mL): 5 Urine output (mL): 0 Blood Pressure: 145/87 SaO2: 94 Pulse Rate: 104 Respiratory Rate: 17 Temperature: 97.9 F Patient is:: Drowsy Stable to PACU at:: 13:43
[2022-04-19 13:59] LABS: POC Glucose,Bedside 168 (70-110)
--- NOTE | 2022-04-19 14:03 | PC.NURSE ---
Greg Parmar RETAIL CLERK notified of pt complaining of severe pain. Asking why her throat hurts so bad when she breaths. No new orders will continue to monitor and notify provider if needed. assessment: Lungs sounds diminished. O2 sats 92% on room air. Ice chips given. Pt denies any shortness of air.
--- NOTE | 2022-04-19 14:29 | PC.NURSE ---
Greg day GUIDANCE COUNSELOR at bedside to assess pt. No new orders. Pt stable.
[2022-04-20 06:57] VITALS: BP 124/80; PULSE 70; TEMP 36.6
--- NOTE | 2022-04-20 06:57 | HMH.ANESII ---
[facility] Anesthesia Record Part II Discharge Time: 14:29 Destination: Surgical Day Care (OP Surgery) PACU nurse assessment reviewed?: Yes Patient Condition:: Good Anesthesia Complications:: None Swallowing reflex intact?: Yes Cyanosis?: No Blood Pressure: 124/80 Pulse Rate: 70 Temperature: 98 F Mental Status: Alert & Oriented Pain level:: 1 Nausea and/or vomitting:: None Intake, IV Amount: 0
== END 2022-04-19 15:01 | disposition home or self-care (01) ==
LOC: OR 09:46
PROVIDERS: PCP Internal Medicine; Visit Provider Surgery
DX: D12.9 Benign neoplasm of anus and anal canal (principal); K62.4 Stenosis of anus and rectum; E11.9 Type 2 diabetes mellitus without complications; I10 Essential (primary) hypertension; E78.5 Hyperlipidemia, unspecified
CPT/HCPCS: 46922; 82962; 88305; 96374; J2405

== ENCOUNTER → 2022-06-16 11:53 | Outpatient (CLI) | payer MEDICARE, SELFPAY ==
[2022-06-16 13:27] LABS: Basophils # 0.1 K/mm3 (0-0.2); Basophils % 1.1 % (0.1-2.0); Eosinophils # 0.1 K/mm3 (0.0-0.4); Eosinophils % 1.4 % (0.1-12.0); Hematocrit 41.3 % (37.0-47.0); Hemoglobin 13.1 g/dL (12.2-16.2); Lymphocytes # 2.5 K/mm3 (0.7-4.5); Lymphocytes % 31.6 % (10-50); Mean Corpuscular HGB Conc 31.7 g/dL (31.8-35.4); Mean Corpuscular Hemoglobin 28.5 pg (27.0-31.2); Mean Corpuscular Volume 89.9 fl (81-99); Mean Platelet Volume 9.9 fl (7.4-10.4); Monocytes # 0.6 K/mm3 (0.1-1.0); Neutrophils # 4.6 K/mm3 (1.8-7.8); Neutrophils % 58.9 % (37.0-80.0); Platelet Count 179 K/mm3 (142-424); Red Cell Distribution Width 13.5 % (11.5-17.5); White Blood Count 7.9 K/mm3 (4.8-10.8)
[2022-06-16 13:37] LABS: Creatinine,Urine Random 102 mg/dL (Not Estab.)
[2022-06-16 13:40] LABS: Microalbumin/Creatinine Ratio 10.9
[2022-06-16 13:46] LABS: Chloride 108 mmol/L (98-107)
[2022-06-16 13:47] LABS: Potassium 3.8 mmoL/L (3.5-5.1); Sodium 141 mmol/L (136-145)
[2022-06-16 13:49] LABS: Alanine Aminotransferase 22 U/L (12-78); Alkaline Phosphatase 103 U/L (38-126); Anion Gap 10.8 mEq/L (5-15); Aspartate Amino Transferase 24 U/L (14-36); Bilirubin,Total 0.7 mg/dl (0.2-1.3); Blood Urea Nitrogen 10 mg/dl (7-17); Carbon Dioxide 26 mmol/L (22.0-30.0); Cholesterol 150 mg/dl (140-200); Estimated Glomerular Filt Rate 99 ml/min (>60); GFR (African American) 119 ML/MIN (>60); Triglycerides 333 mg/dl (30-150); VLDL Cholesterol 67 mg/dL (0-40)
[2022-06-16 13:50] LABS: Albumin Level 3.8 g/dl (3.5-5.0); Albumin/Globulin Ratio 1.5 (1.1-1.8); Calcium 8.8 mg/dl (8.4-10.2); Chol/HDL Ratio 4.3 (1-3.5); Globulin 2.6 g/dL (1.3-3.2); Glucose 155 mg/dl (74-100); HDL Cholesterol 35 mg/dl (40-60); Total Protein,Serum 6.4 g/dl (6.3-8.2)
[2022-06-16 17:14] LABS: Hemoglobin A1C 7.2 % (4.0-6.0)
[2022-06-17 09:43] LABS: Direct LDL Cholesterol 70 mg/dL (100-129)
== END ==
PROVIDERS: PCP Internal Medicine; Visit Provider Internal Medicine
DX: E11.42 Type 2 diabetes mellitus with diabetic polyneuropathy (principal); E78.5 Hyperlipidemia, unspecified; I10 Essential (primary) hypertension; E66.01 Morbid (severe) obesity due to excess calories; Z68.39 Body mass index [BMI] 39.0-39.9, adult; Z79.84 Long term (current) use of oral hypoglycemic drugs
CPT/HCPCS: 80053; 80061; 82043; 82570; 83036; 85025

== ENCOUNTER 2023-02-09 11:19 | Emergency (ER) | payer MEDICARE, SELFPAY ==
--- NOTE | 2023-02-09 11:18 | ECG_ITS ---
APPROVED REPORT Exam: Resting ECG HR:66 bpm ECG Measurements Heart Rate 66 AXES UT 174 P 54 QRSd 99 QRS -9 QT 420 T 46 QTc 433 Conclusion SINUS RHYTHM NONSPECIFIC T-WAVE ABNORMALITY BORDERLINE ECG UNCONFIRMED REPORT Electronically signed by : Vasile Leigh MD 02/09/2023 17:35:03
[2023-02-09 11:24] VITALS: BP 140/77; PULSE 69; RESP 16; TEMP 36.6; O2SAT 96; BMI 38.2
[2023-02-09 11:28] VITALS: BP 114/72; PULSE 71; O2SAT 95
--- NOTE | 2023-02-09 11:29 | XR_ITS ---
FINAL REPORT CLINICAL HISTORY: chest pain COMPARISON: 03/06/2019 FINDINGS: PORTABLE CHEST The heart is normal in size. The mediastinum is unremarkable. The lungs are clear. There is no pneumothorax. IMPRESSION: No acute process. Reviewed, Interpreted and Dictated by Lorenzo Steward MD Transcribed by Page Shearer Authenticated and [facility]
--- NOTE | 2023-02-09 11:30 | PC.NURSE ---
ER AT BEDSIDE
[2023-02-09 11:31] VITALS: BP 99/58; PULSE 78; RESP 18; O2SAT 96
--- NOTE | 2023-02-09 11:34 | HMH.EDCP ---
Discharge Plan Disposition Chief Complaint: Chest Pain Prescriptions Prescriptions: No Action vitamin E (dl, acetate) 45 mg (100 unit) capsule 45 mg PO DAILY furosemide 40 mg tablet 40 mg PO DAILY Label Comments: TAKE 1 TABLET BY MOUTH EVERY DAY nitroglycerin 0.4 MG tablet, sublingual 0.4 mg SL NEEDED PRN (Reason: Chest Pain) lisinopril 10 MG tablet 40 mg PO DAILY semaglutide 3 MG tablet 3 mg PO DAILY hydrocodone-acetaminophen 1 TAB tablet 1 - 2 tab PO Q6HP PRN (Reason: Moderate Pain) Qty: 17 0RF gabapentin 600 tablet 600 mg PO BID amlodipine 10 MG tablet 10 mg PO DAILY Label Comments: take 1 tablet by mouth once daily atenolol 50 tablet 50 mg PO DAILY Referrals Follow up/Referrals: Issa Ribera MD [Primary Care Provider] - See instructions Activity Restrictions/Add. Instructions Additional Instructions/Restrictions: Please follow-up with your primary care doctor in about 2 to 3 days even if you feel better. Strongly consider following up with a process improvement analyst to have a stress test done. If you get worse in any way please return to the emergency department immediately. Your work-up today did not show any evidence of heart attack. I believe that your symptoms are most likely secondary to something called costochondritis. This is an inflammation of the cartilage between your breastbone and your ribs. You can take [id number] Tylenol and or ibuprofen for the discomfort from costochondritis. Clinical Impressions Clinical Impression: Acute costochondritis, Atypical chest pain Instructions Patient Instructions: DI for Atypical Chest Pain Discharge ED Provider: Wagner Collazo Chest Pain [facility] General Chief Complaint: Chest Pain Stated Complaint: chest pain Time Seen by Provider: 02/09/23 11:30 Mode of Arrival: Wheelchair Source of Information: Patient Limitations: No Limitations Description of Symptoms (Recalled from ER Triage Doc. by RN): pt presents to ed via wheelchair for chest pain. pain comes and goes and is located in middle of chest. does not radiate or move. History of Present Illness HPI narrative: The patient presents to the emergency department complaining of chest pain that radiates to her left shoulder and down her left arm since 2 days ago. The pain is constant. It is not pleuritic. And it is not associated with shortness of breath. The patient denies being a smoker. She states that she may have had a heart attack 15 years ago. She is not on any blood thinners. She also does not take aspirin. MD complaint: chest pain Onset (ago): day(s) (2) Duration: constant Activity at onset: during rest AMEE Score for Non-Stemi Age of Patient: 70-79 years old Heart Rate: 50-69 bpm Systolic Blood Pressure: 100-119 mmHg Serum Creatinine: 0.40-0.79 mg/dl CHF [place] Class: I-No CHF Other Risk Factors: None Non-Stemi Risk Score: 125 Related Data Home Medications Medication Instructions Recorded Confirmed amlodipine 10 mg tablet 10 mg PO DAILY Hypertension 04/26/19 05/13/22 atenolol 50 mg tablet 50 mg PO DAILY Hypertension 04/26/19 05/13/22 gabapentin 600 mg tablet 600 mg PO BID Pain 04/26/19 05/13/22 vitamin E (dl, acetate) 45 mg (100 45 mg PO DAILY Supplement 08/24/21 05/13/22 unit) capsule nitroglycerin 0.4 mg sublingual 0.4 mg sublingual NEEDED PRN 09/14/21 05/13/22 tablet Chest Pain lisinopril 10 mg tablet 40 mg PO DAILY bp 03/19/22 05/13/22 furosemide 40 mg tablet 40 mg PO DAILY Fluid 04/13/22 05/13/22 semaglutide 3 mg tablet 3 mg PO DAILY Diabetes 04/14/22 05/13/22 Previous Rx's Medication Instructions Recorded hydrocodone 5 mg-acetaminophen 325 1 - 2 tab PO Q6HP PRN Moderate 04/19/22 mg tablet Pain #17 tabs Allergies Allergy/AdvReac Type Severity Reaction Status Date / Time ampicillin [AMPICILLIN] Allergy Mild HIves Verified 02/09/23 11:28 [facility] Disclaimer: The information contained in t
[2023-02-09 11:51] LABS: Basophils # 0.1 K/mm3 (0-0.2); Basophils % 1.7 % (0.1-2.0); Eosinophils # 0.1 K/mm3 (0.0-0.4); Eosinophils % 1.2 % (0.1-12.0); Hematocrit 44.6 % (37.0-47.0); Hemoglobin 14.4 g/dL (12.2-16.2); Lymphocytes # 2.8 K/mm3 (0.7-4.5); Lymphocytes % 36.3 % (10-50); Mean Corpuscular HGB Conc 32.3 g/dL (31.8-35.4); Mean Corpuscular Hemoglobin 28.5 pg (27.0-31.2); Mean Corpuscular Volume 88.4 fl (81-99); Mean Platelet Volume 9.1 fl (7.4-10.4); Monocytes # 0.4 K/mm3 (0.1-1.0); Monocytes % 5.2 % (1.7-9.3); Neutrophils # 4.3 K/mm3 (1.8-7.8); Neutrophils % 55.6 % (37.0-80.0); Platelet Count 206 K/mm3 (142-424); Red Blood Count 5.04 M/mm3 (4.20-5.40); Red Cell Distribution Width 13.2 % (11.5-17.5); White Blood Count 7.7 K/mm3 (4.8-10.8)
[2023-02-09 11:59] LABS: Chloride 103 mmol/L (98-107); Sodium 140 mmol/L (136-145)
[2023-02-09 12:00] LABS: Potassium 3.9 mmoL/L (3.5-5.1)
[2023-02-09 12:01] VITALS: BP 114/72; PULSE 70; RESP 18; O2SAT 96
[2023-02-09 12:02] LABS: Alanine Aminotransferase 23 U/L (12-78); Alkaline Phosphatase 83 U/L (38-126); Anion Gap 11.9 mEq/L (5-15); Aspartate Amino Transferase 28 U/L (14-36); Bilirubin,Total 0.8 mg/dl (0.2-1.3); Blood Urea Nitrogen 12 mg/dl (7-17); Calcium 8.7 mg/dl (8.4-10.2); Carbon Dioxide 29 mmol/L (22.0-30.0); Creatinine Clearance Estimated 82 mL/min (50-200); Estimated Glomerular Filt Rate 82 ml/min (>60); GFR (African American) 100 ML/MIN (>60); Glucose 132 mg/dl (74-100)
[2023-02-09 12:03] LABS: Albumin Level 4.5 g/dl (3.5-5.0); Albumin/Globulin Ratio 1.5 (1.1-1.8); Total Protein,Serum 7.5 g/dl (6.3-8.2)
[2023-02-09 12:22] LABS: Troponin I < 0.01 ng/ml (0.00-0.034)
[2023-02-09 12:30] VITALS: BP 124/72; PULSE 70; RESP 20; O2SAT 95
[2023-02-09 13:17] VITALS: BP 115/64; PULSE 71; RESP 15; TEMP 36.6
== END 2023-02-09 13:18 | disposition home or self-care (01) ==
PROVIDERS: Emergency Provider Emergency Medicine; PCP Internal Medicine
DX: R07.9 Chest pain, unspecified (principal); M94.0 Chondrocostal junction syndrome [Tietze]
CPT/HCPCS: 71045; 80053; 84484; 85025; 93005; 99284; 99285

== ENCOUNTER → 2023-03-02 09:56 | Outpatient (CLI) | payer MEDICARE, SELFPAY ==
[2023-03-02 11:29] LABS: Chloride 105 mmol/L (98-107); Potassium 4.2 mmoL/L (3.5-5.1); Sodium 139 mmol/L (136-145)
[2023-03-02 11:30] LABS: Hemoglobin A1C 6.9 % (4.0-6.0)
[2023-03-02 11:32] LABS: Alanine Aminotransferase 20 U/L (12-78); Albumin Level 4.2 g/dl (3.5-5.0); Albumin/Globulin Ratio 1.6 (1.1-1.8); Alkaline Phosphatase 83 U/L (38-126); Anion Gap 10.2 mEq/L (5-15); Aspartate Amino Transferase 24 U/L (14-36); Bilirubin,Total 0.7 mg/dl (0.2-1.3); Blood Urea Nitrogen 20 mg/dl (7-17); Calcium 8.8 mg/dl (8.4-10.2); Carbon Dioxide 28 mmol/L (22.0-30.0); Chol/HDL Ratio 4.4 (1-3.5); Cholesterol 157 mg/dl (140-200); Estimated Glomerular Filt Rate 71 ml/min (>60); GFR (African American) 85 ML/MIN (>60); Globulin 2.7 g/dL (1.3-3.2); Glucose 139 mg/dl (74-100); HDL Cholesterol 36 mg/dl (40-60); Total Protein,Serum 6.9 g/dl (6.3-8.2); Triglycerides 292 mg/dl (30-150); VLDL Cholesterol 58 mg/dL (0-40)
[2023-03-02 11:43] LABS: Direct LDL Cholesterol 79.89 mg/dL (100-129)
== END ==
PROVIDERS: PCP Internal Medicine; Visit Provider Internal Medicine
DX: E11.42 Type 2 diabetes mellitus with diabetic polyneuropathy (principal); E78.5 Hyperlipidemia, unspecified; I10 Essential (primary) hypertension; Z79.84 Long term (current) use of oral hypoglycemic drugs
CPT/HCPCS: 36415; 80053; 80061; 83036

== ENCOUNTER → 2023-03-18 06:33 | Outpatient (CLI) | payer MEDICARE, SELFPAY | PROVIDERS: PCP Internal Medicine; Visit Provider Nurse Practitioner | DX: R06.02 Shortness of breath (principal); R07.9 Chest pain, unspecified ==

== ENCOUNTER → 2023-03-21 12:44 | Outpatient (CLI) | payer MEDICARE, SELFPAY | PROVIDERS: PCP Internal Medicine; Visit Provider Nurse Practitioner | DX: E13.69 Other specified diabetes mellitus with other specified complication (principal); I25.118 Atherosclerotic heart disease of native coronary artery with other forms of angina pectoris; R06.09 Other forms of dyspnea; R07.89 Other chest pain; R94.31 Abnormal electrocardiogram [ECG] [EKG] | CPT/HCPCS: 93306 ==

== ENCOUNTER → 2023-04-05 14:34 | Outpatient (CLI) | payer MEDICARE, SELFPAY ==
--- NOTE | 2023-04-05 14:45 | XR_ITS ---
FINAL REPORT CLINICAL HISTORY: COVID TESTING COMPARISON: 02/09/2023 FINDINGS: SINGLE-VIEW CHEST The heart size is normal. The mediastinum is normal. There is mild chronic changes at the bases. The lungs are otherwise clear. There is no pneumothorax. IMPRESSION: No acute cardiopulmonary process. Reviewed, Interpreted and Dictated by Lorenzo Steward MD Transcribed by Tari Dominique Authenticated and [facility]
== END ==
PROVIDERS: PCP Internal Medicine; Visit Provider Internal Medicine
DX: Z20.822 Contact with and (suspected) exposure to COVID-19 (principal)
CPT/HCPCS: 71045; 87635; C9803; U0003; U0005

== ENCOUNTER 2023-04-08 06:30 | Outpatient (CLI) | payer MEDICARE, SELFPAY ==
[2023-04-08 07:40] VITALS: PULSE 63; RESP 17; O2SAT 100
[2023-04-08 07:43] VITALS: PULSE 63; RESP 16; O2SAT 100
[2023-04-08 08:01] VITALS: BMI 37.8
[2023-04-08 08:15] LABS: Chloride 105 mmol/L (98-107); Potassium 3.9 mmoL/L (3.5-5.1); Sodium 141 mmol/L (136-145)
[2023-04-08 08:18] LABS: Anion Gap 12.9 mEq/L (5-15); Blood Urea Nitrogen 16 mg/dl (7-17); Calcium 8.8 mg/dl (8.4-10.2); Carbon Dioxide 27 mmol/L (22.0-30.0); Creatinine Clearance Estimated 80 mL/min (50-200); Estimated Glomerular Filt Rate 82 ml/min (>60); GFR (African American) 100 ML/MIN (>60); Glucose 147 mg/dl (74-100)
[2023-04-08 08:40] VITALS: BP 138/97; PULSE 64; RESP 17; O2SAT 97
[2023-04-08 08:51] VITALS: BP 160/92; PULSE 69; O2SAT 97
== END 2023-04-08 09:00 | disposition home or self-care (01) ==
PROVIDERS: PCP Internal Medicine; Visit Provider Physician Assistant
DX: I25.118 Atherosclerotic heart disease of native coronary artery with other forms of angina pectoris (principal); R06.09 Other forms of dyspnea; R07.89 Other chest pain; R94.31 Abnormal electrocardiogram [ECG] [EKG]
CPT/HCPCS: 75574; 80048; Q9967

== ENCOUNTER → 2023-04-12 15:02 | Outpatient (CLI) | payer MEDICARE, SELFPAY ==
[2023-04-12 15:27] LABS: Basophils # 0.1 K/mm3 (0-0.2); Basophils % 0.8 % (0.1-2.0); Eosinophils # 0.1 K/mm3 (0.0-0.4); Eosinophils % 1.5 % (0.1-12.0); Hematocrit 40.8 % (37.0-47.0); Hemoglobin 12.9 g/dL (12.2-16.2); Lymphocytes # 3.1 K/mm3 (0.7-4.5); Lymphocytes % 32.1 % (10-50); Mean Corpuscular HGB Conc 31.7 g/dL (31.8-35.4); Mean Corpuscular Hemoglobin 27.6 pg (27.0-31.2); Mean Corpuscular Volume 87.1 fl (81-99); Mean Platelet Volume 8.5 fl (7.4-10.4); Monocytes # 0.6 K/mm3 (0.1-1.0); Monocytes % 6.3 % (1.7-9.3); Neutrophils # 5.6 K/mm3 (1.8-7.8); Neutrophils % 59.3 % (37.0-80.0); Platelet Count 194 K/mm3 (142-424); Red Blood Count 4.68 M/mm3 (4.20-5.40); Red Cell Distribution Width 13.1 % (11.5-17.5); White Blood Count 9.5 K/mm3 (4.8-10.8)
== END ==
PROVIDERS: PCP Internal Medicine; Visit Provider Internal Medicine
DX: R10.31 Right lower quadrant pain (principal); R14.0 Abdominal distension (gaseous)
CPT/HCPCS: 36415; 85025

== ENCOUNTER 2023-07-11 07:45 | Emergency (ER) | payer MEDICARE, SELFPAY ==
[2023-07-11 07:47] VITALS: BP 113/64; PULSE 74; RESP 16; TEMP 36.5; O2SAT 98; BMI 36.6
[2023-07-11 07:51] VITALS: BP 113/64; PULSE 84; RESP 20; O2SAT 97
--- NOTE | 2023-07-11 07:56 | HMH.EDGENADL ---
Discharge Plan Disposition Patient Disposition: Home, Self-Care Condition: Fair Prescriptions Prescriptions: New methocarbamol 500 mg tablet 500 mg PO .q12h prn Qty: 10 0RF lidocaine [Salonpas (lidocaine)] 4 % adhesive patch,medicated 1 patch topical DAILY PRN (Reason: pain) Qty: 5 0RF Rx Instructions: may leave on for up to 12 hrs, remove for 12 hours at a time. No Action furosemide 40 mg tablet 40 mg PO DAILY Patient Comments: TAKE 1 TABLET BY MOUTH EVERY DAY rosuvastatin [Crestor] 10 mg tablet 10 mg PO DAILY Qty: 30 3RF nitroglycerin 0.4 MG tablet, sublingual 0.4 mg SL NEEDED PRN (Reason: Chest Pain) lisinopril 10 MG tablet 40 mg PO DAILY semaglutide 3 MG tablet 3 mg PO DAILY gabapentin 600 tablet 600 mg PO BID amlodipine 10 MG tablet 10 mg PO DAILY Patient Comments: take 1 tablet by mouth once daily atenolol 50 tablet 50 mg PO DAILY potassium 20 mg Tablet,Chewable 20 mg PO DAILY aspirin [Adult Low Dose Aspirin] 81 mg tablet,delayed release (DR/EC) 81 mg PO DAILY Qty: 30 5RF Referrals Follow up/Referrals: Issa Ribera MD [Primary Care Provider] - See instructions Activity Restrictions/Add. Instructions Additional Instructions/Restrictions: Take Tylenol and ibuprofen at home. Do not exceed the recommended doses on the bottles. Use the prescribed methocarbamol and lidocaine patches as directed for additional pain control. Rest and recover. A heating pad or ice pack may also improve some of your pain. Be aware that the methocarbamol may make you sleepy. Do not drive while on this medication. Make an appointment with your primary care physician for 1 to 2 days from now for reevaluation. Return to the emergency department with new or worsening symptoms including but not limited to new numbness, new weakness in the legs, bowel or bladder incontinence, or inability to use the restroom. Also do not hesitate to return if you have any other symptoms that make you concerned for your health. Additionally, as discussed, your blood pressure was normal in the emergency department without you taking your blood pressure medications today. Check your blood pressure at home and if it continues to be 130/80 or less, do not take your blood pressure medications as I do not want you to have low blood pressure causing dizziness which could lead you to fall. Drink plenty of fluids. Discuss your blood pressure with your primary care physician at your follow-up appointment. Clinical Impressions Clinical Impression: Acute back pain Qualifiers: Back pain location: low back pain Back pain laterality: midline Sciatica presence: with sciatica Sciatica laterality: sciatica of left side Qualified Code(s): M54.42 - Lumbago with sciatica, left side Discharge ED Provider: Fritz Chino General Adult HPI General Chief complaint: PAIN Stated complaint: back pain Time Seen by Provider: 07/11/23 07:48 History of Present Illness HPI narrative: This 73-year-old female with a history of hypertension, CAD, atypical chest pain who takes as needed nitro, history of L5 bulging disc presents to the emergency department with acute back pain. Patient states yesterday she was carrying in cases of water when she felt the disc in her back slipped. She states she took a half of a Tylenol 3 without significant improvement of symptoms. Today she is ambulating with a walker when she normally ambulates independently. She states she has severe pain at her low back without radiation down either leg. She denies saddle anesthesia, no bowel or bladder incontinence, no difficulty using the restroom. Patient states the last time she had severe pain like this was multiple years ago when she slipped this disc previously. No other positive review of systems at this time. Related Data Home Medications Medication Instructions Recorded Confirmed amlodipine 10 mg table
--- NOTE | 2023-07-11 08:03 | CT_ITS ---
PROCEDURE INFORMATION: Exam: CT Lumbar Spine Without Contrast Exam date and time: 07/11/2023 8:32 AM Age: 73 years old Clinical indication: Low back pain; Additional info: Midline tenderness l4/l5/s1 TECHNIQUE: Imaging protocol: Computed tomography of the lumbar spine without contrast. Radiation optimization: All CT scans at this facility use at least one of these dose optimization techniques: automated exposure control; mA and/or kV adjustment per patient size (includes targeted exams where dose is matched to clinical indication); or iterative reconstruction. REPORTING DATA: Count of CT and Cardiac NM exams in prior 12 months: This patient has received [address] and 0 known cardiac nuclear medicine studies in the 12 months prior to the current study. COMPARISON: CR LS5 LUMBAR SPINE 5 VIEWS 08/31/2016 10:30 AM FINDINGS: Bones/joints: Osteopenia, without acute bony injury. Degenerative change and severe facet arthropathy, with 1 mm anterolisthesis of L4 on L5. Mild disc bulging, without focal herniation. Liver: 5 mm calcification contiguous with the medial capsular border of the liver. Adrenal glands: Bilateral adrenal adenomas, including a 2.5 cm left adrenal adenoma. Stomach and bowel: Incompletely visualized small bowel dilatation. Soft tissues: Unremarkable appearance of the paraspinous soft tissues. Posterior subcutaneous edema. IMPRESSION: 1. Osteopenia and degenerative change, with severe facet arthropathy. 2. Additional findings as described above. COMMENTS: Consistent with the [employer]'s Incidental Findings Committee white paper (J Am Kwesi Radiol 2017): For any incidental adrenal lesion greater than or equal to 1 cm but less than or equal to 4 cm classified in this report as benign, likely benign, or containing fat (including classification as an adenoma or myelolipoma), no follow-up imaging is recommended per consensus recommendations based on imaging criteria. Further lab evaluation could be pursued if warranted based on clinical findings.
[2023-07-11 08:05] VITALS: BP 89/60; PULSE 84; RESP 20; O2SAT 96
[2023-07-11 09:00] VITALS: BP 107/64; PULSE 73; RESP 18; O2SAT 97
[2023-07-11 09:35] VITALS: BP 113/66; PULSE 69; RESP 16; TEMP 36.7
== END 2023-07-11 09:37 | disposition home or self-care (01) ==
PROVIDERS: Emergency Provider Emergency Medicine; PCP Internal Medicine
DX: M54.42 Lumbago with sciatica, left side (principal); I10 Essential (primary) hypertension; I25.119 Atherosclerotic heart disease of native coronary artery with unspecified angina pectoris; E11.9 Type 2 diabetes mellitus without complications; E78.5 Hyperlipidemia, unspecified
CPT/HCPCS: 72131; 96372; 99284

== ENCOUNTER → 2023-09-13 10:29 | Outpatient (CLI) | payer MEDICARE, SELFPAY ==
[2023-09-13 11:00] LABS: Basophils # 0.1 K/mm3 (0-0.2); Eosinophils # 0.1 K/mm3 (0.0-0.4); Eosinophils % 1.4 % (0.1-12.0); Hematocrit 42.3 % (37.0-47.0); Hemoglobin 14.5 g/dL (12.2-16.2); Lymphocytes # 3.1 K/mm3 (0.7-4.5); Lymphocytes % 38.5 % (10-50); Mean Corpuscular HGB Conc 34.4 g/dL (31.8-35.4); Mean Corpuscular Hemoglobin 29.9 pg (27.0-31.2); Mean Corpuscular Volume 86.8 fl (81-99); Mean Platelet Volume 8.9 fl (7.4-10.4); Monocytes # 0.5 K/mm3 (0.1-1.0); Monocytes % 6.1 % (1.7-9.3); Neutrophils # 4.3 K/mm3 (1.8-7.8); Neutrophils % 52.9 % (37.0-80.0); Platelet Count 186 K/mm3 (142-424); Red Blood Count 4.87 M/mm3 (4.20-5.40); Red Cell Distribution Width 13.6 % (11.5-17.5)
[2023-09-13 11:15] LABS: Creatinine,Urine Random 158 mg/dL (Not Estab.)
[2023-09-13 11:16] LABS: Microalbumin/Creatinine Ratio 13.5
[2023-09-13 11:29] LABS: Hemoglobin A1C 6.6 % (4.0-6.0)
[2023-09-13 12:01] LABS: Alanine Aminotransferase 22 U/L (12-78); Albumin Level 4.3 g/dl (3.5-5.0); Albumin/Globulin Ratio 1.5 (1.1-1.8); Alkaline Phosphatase 83 U/L (38-126); Aspartate Amino Transferase 30 U/L (14-36); Bilirubin,Total 0.6 mg/dl (0.2-1.3); Blood Urea Nitrogen 15 mg/dl (7-17); Calcium 9.2 mg/dl (8.4-10.2); Carbon Dioxide 28 mmol/L (22.0-30.0); Chloride 103 mmol/L (98-107); Chol/HDL Ratio 3.3 (1-3.5); Cholesterol 114 mg/dl (140-200); Estimated Glomerular Filt Rate 82 ml/min (>60); GFR (African American) 100 ML/MIN (>60); Globulin 2.8 g/dL (1.3-3.2); Glucose 126 mg/dl (74-100); HDL Cholesterol 35 mg/dl (40-60); Sodium 141 mmol/L (136-145); Total Protein,Serum 7.1 g/dl (6.3-8.2); Triglycerides 222 mg/dl (30-150); VLDL Cholesterol 44 mg/dL (0-40)
[2023-09-13 12:12] LABS: Direct LDL Cholesterol 52.19 mg/dL (100-129)
== END ==
PROVIDERS: PCP Internal Medicine; Visit Provider Internal Medicine
DX: E11.42 Type 2 diabetes mellitus with diabetic polyneuropathy (principal); E11.59 Type 2 diabetes mellitus with other circulatory complications; E78.5 Hyperlipidemia, unspecified; I10 Essential (primary) hypertension; Z79.899 Other long term (current) drug therapy
CPT/HCPCS: 80053; 80061; 82043; 82570; 83036; 85025

== ENCOUNTER 2023-12-14 10:32 | Outpatient (CLI) | payer MEDICARE, SELFPAY ==
--- NOTE | 2023-12-14 10:40 | US_ITS ---
FINAL REPORT CLINICAL HISTORY: CLAUDICATION,HTN,EDEMA,DM,CVA,WV FINDINGS: COMPLETE ANKLE/BRACHIAL INDICES BILATERAL The right PILAR is 1.1. The left PILAR is 1.0. IMPRESSION: ABIs are within normal limits bilaterally. Reviewed, Interpreted and Dictated by Ronan Medellin III, MD Transcribed by Tari Dominique Authenticated and [facility]
== END 2023-12-14 23:59 ==
LOC: RT 10:34
PROVIDERS: PCP Internal Medicine; Visit Provider Internal Medicine
DX: M79.604 Pain in right leg (principal); M79.605 Pain in left leg; R60.0 Localized edema; I70.213 Atherosclerosis of native arteries of extremities with intermittent claudication, bilateral legs
CPT/HCPCS: 93923

== ENCOUNTER 2024-03-13 16:53 | Outpatient (CLI) | payer MEDICARE, SELFPAY ==
[2024-03-13 17:41] LABS: Basophils # 0.1 K/mm3 (0-0.2); Basophils % 1.3 % (0.1-2.0); Eosinophils # 0.1 K/mm3 (0.0-0.4); Eosinophils % 2.2 % (0.1-12.0); Hematocrit 43.5 % (37.0-47.0); Hemoglobin 13.6 g/dL (12.2-16.2); Lymphocytes # 2.4 K/mm3 (0.7-4.5); Lymphocytes % 37.4 % (10-50); Mean Corpuscular HGB Conc 31.4 g/dL (31.8-35.4); Mean Corpuscular Hemoglobin 28.3 pg (27.0-31.2); Mean Corpuscular Volume 90.3 fl (81-99); Mean Platelet Volume 10.5 fl (7.4-10.4); Monocytes # 0.4 K/mm3 (0.1-1.0); Monocytes % 6.4 % (1.7-9.3); Neutrophils # 3.4 K/mm3 (1.8-7.8); Neutrophils % 52.7 % (37.0-80.0); Platelet Count 200 K/mm3 (142-424); Red Blood Count 4.81 M/mm3 (4.20-5.40); Red Cell Distribution Width 14.2 % (11.5-17.5); White Blood Count 6.5 K/mm3 (4.8-10.8)
[2024-03-13 18:29] LABS: Alanine Aminotransferase 19 U/L (12-78); Albumin Level 4.3 g/dl (3.5-5.0); Albumin/Globulin Ratio 1.7 (1.1-1.8); Alkaline Phosphatase 95 U/L (38-126); Anion Gap 16.9 mEq/L (5-15); Aspartate Amino Transferase 25 U/L (14-36); Bilirubin,Total 0.8 mg/dl (0.2-1.3); Blood Urea Nitrogen 14 mg/dl (7-17); Carbon Dioxide 25 mmol/L (22.0-30.0); Chloride 104 mmol/L (98-107); Chol/HDL Ratio 2.5 (1-3.5); Cholesterol 109 mg/dl (140-200); Estimated Glomerular Filt Rate 98 ml/min (>60); GFR (African American) 119 ML/MIN (>60); Globulin 2.5 g/dL (1.3-3.2); Glucose 107 mg/dl (74-100); HDL Cholesterol 43 mg/dl (40-60); Potassium 3.9 mmoL/L (3.5-5.1); Sodium 142 mmol/L (136-145); Total Protein,Serum 6.8 g/dl (6.3-8.2); Triglycerides 219 mg/dl (30-150); VLDL Cholesterol 44 mg/dL (0-40)
[2024-03-13 18:57] LABS: Thyroid Stimulating Hormone 0.88 uIU/mL (0.465-4.68)
[2024-03-13 19:16] LABS: Vitamin B12 275 pg/mL (239-931)
[2024-03-13 20:01] LABS: Hemoglobin A1C 6.9 % (4.0-6.0)
== END 2024-03-13 23:59 | disposition home or self-care (01) ==
LOC: LAB.DROPOF 16:54
PROVIDERS: PCP Internal Medicine; Visit Provider Internal Medicine
DX: E11.42 Type 2 diabetes mellitus with diabetic polyneuropathy (principal); I10 Essential (primary) hypertension; E11.59 Type 2 diabetes mellitus with other circulatory complications; E78.5 Hyperlipidemia, unspecified; R53.83 Other fatigue; Z68.36 Body mass index [BMI] 36.0-36.9, adult
CPT/HCPCS: 80053; 80061; 82607; 83036; 84443; 85025

== ENCOUNTER 2024-04-24 16:32 | Outpatient (CLI) | payer MEDICARE, SELFPAY ==
--- NOTE | 2024-04-24 16:33 | MM_ITS ---
PROCEDURE INFORMATION: Exam: MG Bilateral Screening 3D Mammography Exam date and time: 04/24/2024 4:23 PM Age: 74 years old Clinical indication: Screening examination TECHNIQUE: Imaging protocol: Bilateral Screening tomosynthesis and 2D mammography including computer-aided detection (CAD) when performed. COMPARISON: 1. MG SCBI MM Dig screening mamm BI w/CAD 10/26/2018 9:22 AM 2. MG DMDXUR DIG MAMM-DX UNI-RT W/CAD 07/13/2017 10:31 AM FINDINGS: MAMMOGRAPHY: Breast composition: There are scattered areas of fibroglandular density. Mass: None. Architectural distortion: None. Calcifications: No suspicious calcifications. Asymmetric density: None. Skin thickening: None. Axillary adenopathy: None. IMPRESSION: No mammographic evidence of malignancy. Annual screening is recommended unless otherwise clinically indicated. ASSESSMENT: BI-RADS Category 1: Negative
== END 2024-04-24 23:59 | disposition home or self-care (01) ==
LOC: RAD 16:33
PROVIDERS: PCP Internal Medicine; Visit Provider Internal Medicine
DX: Z12.31 Encounter for screening mammogram for malignant neoplasm of breast (principal)
CPT/HCPCS: 77063; 77067

== ENCOUNTER 2024-09-04 10:15 | Outpatient (CLI) | payer MEDICARE, SELFPAY ==
[2024-09-04 15:24] LABS: Alanine Aminotransferase 15 U/L (12-78); Albumin Level 4.1 g/dl (3.5-5.0); Albumin/Globulin Ratio 1.6 (1.1-1.8); Alkaline Phosphatase 76 U/L (38-126); Anion Gap 15.7 mEq/L (5-15); Aspartate Amino Transferase 21 U/L (14-36); Bilirubin,Total 0.8 mg/dl (0.2-1.3); Blood Urea Nitrogen 14 mg/dl (7-17); Carbon Dioxide 27 mmol/L (22.0-30.0); Chloride 103 mmol/L (98-107); Chol/HDL Ratio 2.8 (1-3.5); Cholesterol 101 mg/dl (140-200); Estimated Glomerular Filt Rate 98 ml/min (>60); GFR (African American) 119 ML/MIN (>60); Globulin 2.5 g/dL (1.3-3.2); Glucose 101 mg/dl (74-100); HDL Cholesterol 36 mg/dl (40-60); Potassium 3.7 mmoL/L (3.5-5.1); Sodium 142 mmol/L (136-145); Total Protein,Serum 6.6 g/dl (6.3-8.2); Triglycerides 215 mg/dl (30-150); VLDL Cholesterol 43 mg/dL (0-40)
[2024-09-04 15:35] LABS: Direct LDL Cholesterol 34.37 mg/dL (100-129)
[2024-09-04 16:46] LABS: Creatinine,Urine Random 55 mg/dL (Not Estab.); Hemoglobin A1C 6.2 % (4.0-6.0); Microalbumin < 6.000 mg/L (0-16.7)
== END 2024-09-04 23:59 | disposition home or self-care (01) ==
LOC: LAB.DROPOF 09-05 09:35
PROVIDERS: PCP Internal Medicine; Visit Provider Internal Medicine
DX: E11.59 Type 2 diabetes mellitus with other circulatory complications (principal); E11.42 Type 2 diabetes mellitus with diabetic polyneuropathy; I10 Essential (primary) hypertension; E78.2 Mixed hyperlipidemia; I25.10 Atherosclerotic heart disease of native coronary artery without angina pectoris; E78.5 Hyperlipidemia, unspecified
CPT/HCPCS: 80053; 80061; 82043; 82570; 83036

== ENCOUNTER 2024-10-16 13:49 | Outpatient (CLI) | payer MEDICARE, SELFPAY ==
[2024-10-16 15:13] LABS: Troponin I < 0.01 ng/ml (0.00-0.034)
== END 2024-10-16 23:59 | disposition home or self-care (01) ==
LOC: LAB.DROPOF 13:49
PROVIDERS: PCP Internal Medicine; Visit Provider Internal Medicine
DX: R07.9 Chest pain, unspecified (principal)
CPT/HCPCS: 84484

== ENCOUNTER 2024-12-26 06:23 | Day surgery (SDC) | payer MEDICARE, SELFPAY ==
[2024-12-20 14:26] VITALS: BMI 35.3
[2024-12-26 07:26] VITALS: BP 144/87; PULSE 58; RESP 15; TEMP 36.6; O2SAT 94
--- NOTE | 2024-12-26 07:29 | EXP.ANES.CKL ---
[facility] Disclaimer: The information contained in this section may have been updated after the patient was seen, as this information can be updated by other users. Medical History Angina pectoris HLD (hyperlipidemia) Coronary artery disease Diabetes mellitus, type 2 Hyperlipidemia Hypertension History of chest pain Surgical History History of hysterectomy History of cholecystectomy Family History Other Family history of MS (multiple sclerosis) Family history of cancer Family history of diabetes mellitus type II Social History Smoking Status: Never smoker second hand exposure: No alcohol intake: never counseling provided: provider counseling substance use type: denies use current occupational status: retired Travel in the last 8 weeks: None household members: none housing: house lives independently: Yes marital status: education level: high school service: No current occupational exposures/hazards: No caffeine: No do you feel safe at home: Yes victim of physical abuse: No victim of emotional abuse: No victim of sexual abuse: No would you like helpful sources: No Have you lived/traveled outside [place] in past 30 days?: No Contact w/someone who lives/traveled outside US past 30 days?: No Exposure to someone with infectious disease in past 14 days?: No Do you have a fever (greater than 100.4 F or 38 C)?: No Have you tested positive for COVID-19: No Exposed to someone with COVID-19 in past 14 days?: No Do you have a sore throat?: No Do you have a cough?: No Do you have any weakness?: No Do you have any diarrhea?: No Are you experiencing any unusual bleeding?: No Do you have any muscle aches/pain?: No Do you have any abdominal pain?: No Are you experiencing loss of taste or smell?: No [facility] Anesthesia Checklist Patient Identification Patient Identification: Arm Band and Verbal (Name & ) Structural Data Admitted From: Home Planned Operative Procedure/s: EGD Consent for Planned Operative Procedure(s) Verified: Yes Verified Documents: Surgical Consent and History and Physical NPO Status Verified Time NPO: 17:00 Chart Verification Results Verified: CBC, BMP, ECG and Chest Xray Additional verifications Fingerstick Blood Glucose: 131 Patient : No Anesthesia Reactions: No Hx Blood Transfusions: No Blood Transfusion Reaction: No Cardiovascular Assessment Heart Sounds: S1 & S2 Pulse Rhythm: Irregular Peripheral Edema: No Airway Assessment Mallampati Score:: Class II C-Spine Mobility Assessed: Yes (FROM demonstrated) TMJ Mobility Assessed: Yes Dentition: Dentures-good fit (Upper dentures out. No loose teeth per pt.) Neurological Assessment Level of Consciousness: Awake, Alert, Appropriate and Follows Commands Hx Seizures: No Numbness or tingling in extremities: No Anesthesia Plan Anesthesia Risk discussed: Yes Anesthesia Plan: Verified ASA Class: III Anesthesia Type: MAC
[2024-12-26] MEDS: LACTATED RINGERS 1000ML 1,000 ML 50 ML IV (07:40)
--- NOTE | 2024-12-26 08:26 | P.HP_ITS ---
History of Present Illness *Admission Date: 12/26/24 *Reason for visit:: Epigastric pain/nausea/early satiety *History of present illness: Mrs. Bowen is a 74-year-old female with epigastric abdominal pain, nausea and early satiety who is here for diagnostic EGD. The examination is deemed medically necessary for diagnostic EGD. The patient has been seen, interviewed and examined prior to the procedure by both myself and the anesthesia provider. [facility] Disclaimer: The information contained in this section may have been updated after the patient was seen, as this information can be updated by other users. Medical History Angina pectoris HLD (hyperlipidemia) Coronary artery disease Diabetes mellitus, type 2 Hyperlipidemia Hypertension History of chest pain Surgical History History of hysterectomy History of cholecystectomy Family History Other Family history of MS (multiple sclerosis) Family history of cancer Family history of diabetes mellitus type II Social History Smoking Status: Never smoker second hand exposure: No alcohol intake: never counseling provided: provider counseling substance use type: denies use current occupational status: retired Travel in the last 8 weeks: None household members: none housing: house lives independently: Yes marital status: education level: high school service: No current occupational exposures/hazards: No caffeine: No do you feel safe at home: Yes victim of physical abuse: No victim of emotional abuse: No victim of sexual abuse: No would you like helpful sources: No Have you lived/traveled outside US in past 30 days?: No Contact w/someone who lives/traveled outside US past 30 days?: No Exposure to someone with infectious disease in past 14 days?: No Do you have a fever (greater than 100.4 F or 38 C)?: No Have you tested positive for COVID-19: No Exposed to someone with COVID-19 in past 14 days?: No Do you have a sore throat?: No Do you have a cough?: No Do you have any weakness?: No Do you have any diarrhea?: No Are you experiencing any unusual bleeding?: No Do you have any muscle aches/pain?: No Do you have any abdominal pain?: No Are you experiencing loss of taste or smell?: No Other Medical History Have you received the Flu Vaccine for this season: No Have you received the Pneumonia Vaccine: No Review of Systems Review of Systems Review of systems (narrative): Negative *Cardiovascular Comments: Negative *Gastrointestinal Comments: Negative *Genitourinary Comments: Negative *Musculoskeletal Comments: Negative *Neurologic Comments: Negative Meds Home Medications and Allergies Home Medications ?Medication ?Instructions ?Recorded ?Confirmed ?Type nitroglycerin 0.4 mg sublingual 0.4 mg sublingual NEEDED PRN 09/14/21 12/26/24 History tablet Chest Pain semaglutide 3 mg tablet 3 mg PO DAILY Diabetes 04/14/22 12/26/24 History potassium 20 mg chewable tablet 20 mg PO DAILY Supplement 04/08/23 12/26/24 History aspirin 81 mg tablet,delayed 81 mg PO DAILY #30 tabs 10/03/23 12/26/24 Rx release (Adult Low Dose Aspirin) blood sugar diagnostic (OneTouch #100 strips 06/21/24 12/26/24 Rx Ultra Test strips) rosuvastatin 10 mg tablet 10 mg PO DAILY #90 tabs 08/28/24 12/26/24 Rx lidocaine HCl 2 % mucosal solution 1 applic mucous membrane Q4-6H PRN 09/04/24 12/26/24 Rx (Lidocaine Viscous) pain #100 mL amlodipine 10 mg tablet See Rx Instructions .Route 09/07/24 12/26/24 Rx .COMPLEX #90 tabs furosemide 40 mg tablet 40 mg PO DAILY Fluid #90 tabs 09/17/24 12/26/24 Rx atenolol 50 mg tablet See Rx Instructions .Route 10/01/24 12/26/24 Rx .COMPLEX #90 tabs glipizide 2.5 mg tablet 2.5 mg PO BID #60 tabs 10/18/24 12/26/24 Rx lisinopril 40 mg tablet See Rx Instructions .Route 11/01/24 12/26/24 Rx .COMPLEX #90 tabs blood sugar diagnostic (OneTouch #100 ea 11/23/24 12/26/24 Rx Ultra Test strips) gabapentin 600 mg tablet See Rx Instructions .Route 12/18/24 12/26/24 Rx .COMPLEX #60 tabs New Prescriptions to Start Prescriptions: Allergies Allergy/AdvReac Type Severity Reaction Status Date / Time ampicillin (AMPICILLIN) Allergy Mild HIves Verified 12/26/24 07:24 Exam Data for Last 24 hours Vital signs and Labs for Last 24 Hours: Temp Pulse Resp BP Pulse Ox O2 Del Method 97.8 F 58 L 15 144/87 H 94 L Room Air 12/26/24 07:26 12/26/24 07:26 12/26/24 07:26 12/26/24 07:26 12/26/24 07:26 12/26/24 07:26 *Routine HEENT Exam Head: Present normocephalic Eye: Present EOMI and PERRL ENT: Present mucous membranes moist *Routine Neck Exam Neck: Present supple *Routine Respiratory Exam Respiratory: Present CTA bilaterally *Routine Cardiovascular Exam Cardiovascular: Present RRR *Routine Abdominal Exam Abdominal: Present soft and normoactive bowel sounds; Absent tenderness *Routine Rectal Exam Rectal:: deferred *Routine Genitalia Exam Genitalia:: deferred *Routine Extremities Exam Extremities: Absent cyanosis, clubbing or edema *Routine Skin Exam Skin: Present warm; Absent rash *Routine Neurological Exam Neurological: Present alert and oriented X3 Assessment and Plan *Assessment and plan (1) Epigastric pain: Status: Acute Category: Medical Code(s): R10.13 - Epigastric pain (2) Nausea: Status: Acute Category: Medical Code(s): R11.0 - Nausea (3) Early satiety: Status: Acute Category: Medical Code(s): R68.81 - Early satiety (4) Loss of appetite: Status: Acute Category: Medical Code(s): R63.0 - Anorexia (5) Bloating: Status: Acute Category: Medical Code(s): R14.0 - Abdominal distension (gaseous) (6) History of Helicobacter pylori infection: Status: Acute Category: Medical Code(s): Z86.19 - Personal history of other infectious and parasitic diseases Plan A/P: 1. Epigastric pain with nausea, early satiety, loss of appetite and bl oating is the preprocedural diagnosis. The patient had been previously treated for H. pylori. The patient will be anesthetized/sedated using MAC sedation. The patient has been seen and examined. Cardiac and lung assessment prior to the examination is stable. Proceed with planned diagnostic EGD
--- NOTE | 2024-12-26 08:27 | P.PCN_ITS ---
[facility] [place] Procedure Note Date: 12/26/24 Time: 08:38 Procedure Note:: Upper Endoscopy Procedure Report: Esophagogastroduodenoscopy with cold biopsies Endoscopost: Brown Sanders II, MD Referring Physician: Issa Ribera MD Date of Procedure: December 26, 2024 Equipment: Olympus GIF 190 standard upper endoscope Sedation: MAC sedation Indications: Mrs. Bowen is a 74-year-old female with epigastric abdominal pain postprandially. She has had this for 5 to 6 months. She reports postprandial nausea, early satiety, bloating and loss of appetite. She did try Voquezna samples and did not have improvement of her symptoms. She did have an endoscopy in 2020 (Ronan Fink MD) and was positive for H. pylori and treated. She reports loose bowel movements. Her sister has Crohn's disease. She had a colonoscopy with me in 2016 and had 5 polyps (tubular adenomas x 5) removed. Her last colonoscopy in 2021 (Ronan Fink) revealed 3 polyps (tubular adenomas x 2 and hyperplastic polyp x 1) removed. She reports no heartburn, reflux or dysphagia. She has had some minor weight loss. Procedure: Prior to the procedure, a history and physical exam was performed, and patient's medications and allergies were reviewed. The risks, benefits and alternatives of the sedation and procedure were discussed with the patient. All questions were answered and informed consent was obtained. The patient was brought to the procedure room. Patient identification and proposed procedure were verified by the physician and the nurse. The patient was placed in a left lateral decubitus position and the scope was passed under direct vision. Throughout the procedure, the patient's blood pressure, pulse, and oxygen saturations were monitored continuously. The upper GI endoscopy was accomplished without difficulty. The patient tolerated the procedure well. Findings: The scope was passed directly into the upper esophagus and advanced to the third portion of the duodenum. The post bulbar duodenum, ampulla and duodenal bulb were normal with normal mucosa and conniventes. The scope was wi thdrawn through a normal duodenal bulb and pylorus into the stomach. There was moderate linear reactive gastropathy of the antrum and body of the stomach. The fundus of the stomach was normal. Upon retroflexion there was no hiatal hernia. Biopsies were taken from the antrum. The scope was then withdrawn into the esophagus. There was no evidence of reflux esophagitis or Devi's. There was a serrated Z-line/squamocolumnar junction biopsies were taken at the GE junction. The remainder of the esophageal mucosa was normal. Impression: 1. Mild to moderate linear reactive gastropathy of antrum/body Plan: I will follow-up the biopsies. The patient does have functional dyspepsia and IBS diarrhea. We will discuss additional treatment options. I would recommend testing for EPI.
[2024-12-26 08:29] VITALS: O2SAT 95
[2024-12-26 08:42] VITALS: BP 102/70; PULSE 57; RESP 16; TEMP 36.3; O2SAT 93
[2024-12-26 08:52] VITALS: BP 106/69; PULSE 53; RESP 16; O2SAT 93
[2024-12-26 09:02] VITALS: BP 107/63; PULSE 60; RESP 16; O2SAT 94
[2024-12-26 09:12] VITALS: BP 108/55; PULSE 55; RESP 16; O2SAT 97
== END 2024-12-26 09:21 | disposition home or self-care (01) ==
PROVIDERS: PCP Internal Medicine; Visit Provider Internal Medicine Gastroenterology
PROC: 0DJ08ZZ Inspection of Upper Intestinal Tract, Via Natural or Artificial Opening Endoscopic (ICD-10-PCS; CPT 43239; principal; 2024-12-26 08:00)
DX: R10.13 Epigastric pain (principal); R11.0 Nausea; R68.81 Early satiety; R63.0 Anorexia; R14.0 Abdominal distension (gaseous); Z86.19 Personal history of other infectious and parasitic diseases; K31.9 Disease of stomach and duodenum, unspecified; Z68.35 Body mass index [BMI] 35.0-35.9, adult
CPT/HCPCS: 43239; J7120

== ENCOUNTER 2025-06-20 06:48 | Day surgery (SDC) | payer MEDICARE, SELFPAY ==
[2025-06-18 14:16] VITALS: BMI 35.0
--- NOTE | 2025-06-19 07:22 | EXP.HP ---
History of Present Illness *Admission Date: 06/20/25 *History of present illness: Mrs. Bowen is a 75-year-old female who is here for follow-up screening/surveillance colonoscopy. She did have a colonoscopy with me in 2016 and had 5 polyps (tubular adenomas x 5) which were removed. Her last colonoscopy in 2021 (Ronan Fink MD) revealed 3 polyps (tubular adenomas x 2/hyperplastic polyp x 1) which were removed. The patient's sister has Crohn's disease. The examination is deemed medically necessary for screening/surveillance colonoscopy. The patient has been seen, interviewed and examined prior to the procedure by both myself and the anesthesia provider. [facility] Disclaimer: The information contained in this section may have been updated after the patient was seen, as this information can be updated by other users. Medical History Angina pectoris HLD (hyperlipidemia) Coronary artery disease Diabetes mellitus, type 2 Hyperlipidemia Hypertension History of chest pain Surgical History History of hysterectomy History of cholecystectomy Family History Other Family history of MS (multiple sclerosis) Family history of cancer Family history of diabetes mellitus type II Social History (Updated 06/20/25 @ 07:59 by Caroline Gill RN) Smoking Status: Never smoker second hand exposure: No alcohol intake: never counseling provided: provider counseling substance use type: denies use current occupational status: retired Travel in the last 8 weeks?: None household members: none housing: house lives independently: Yes marital status: education level: high school service: No current occupational exposures/hazards: No caffeine: No do you feel safe at home: Yes victim of physical abuse: No victim of emotional abuse: No victim of sexual abuse: No would you like helpful sources: No Have you lived/traveled outside [place] in past 30 days?: No Contact w/someone who lives/traveled outside [place] past 30 days?: No Exposure to someone with infectious disease in past 14 days?: No Do you have a fever (greater than 100.4 F or 38 C)?: No Have you tested positive for COVID-19?: No Exposed to someone with COVID-19 in past 14 days?: No Do you have a sore throat?: No Do you have a cough?: No Do you have any weakness?: No Are you experiencing any nausea/vomitting?: No Do you have any diarrhea?: No Are you experiencing any unusual bleeding?: No Do you have any muscle aches/pain?: No Do you have any abdominal pain?: No Are you experiencing loss of taste or smell?: No Other Medical History Have you received the Flu Vaccine for this season: No Have you received the Pneumonia Vaccine: No Review of Systems Review of Systems Review of systems (narrative): Negative *Cardiovascular Comments: Negative *Gastrointestinal Comments: Negative *Genitourinary Comments: Negative *Musculoskeletal Comments: Negative *Neurologic Comments: Negative Meds Home Medications and Allergies Home Medications ?Medication ?Instructions ?Recorded ?Confirmed ?Type nitroglycerin 0.4 mg sublingual 0.4 mg sublingual NEEDED PRN 09/14/21 06/20/25 History tablet Chest Pain blood sugar diagnostic (OneTouch #100 ea 11/23/24 12/26/24 Rx Ultra Test strips) rosuvastatin 10 mg tablet 10 mg PO DAILY #90 tabs 12/26/24 06/20/25 Rx blood sugar diagnostic (OneTouch #100 strips 03/18/25 Rx Ultra Test strips) furosemide 40 mg tablet 40 mg PO DAILY Fluid #90 tabs 03/18/25 06/20/25 Rx amlodipine 10 mg tablet 10 mg PO DAILY 06/18/25 06/20/25 History atenolol 50 mg tablet 50 mg PO DAILY 06/18/25 06/20/25 History gabapentin 600 mg tablet 600 mg PO BID 06/18/25 06/20/25 History lisinopril 40 mg tablet 40 mg PO DAILY 06/18/25 06/20/25 History New Prescriptions to Start Prescriptions: Allergies Allergy/AdvReac Type Severity Reaction Status Date / Time ampicillin (AMPICILLIN) Allergy Mild HIves Verified 06/20/25 07:45 Exam Data for Last 24 hours I & O for Last 24 hours: Intake & Output 06/16/25 06/17/25 06/18/25 06/19/25 23:59 23:59 23:59 23:59 Weight 204 lb *Routine HEENT Exam Head: Present normocephalic Eye: Present EOMI and PERRL ENT: Present mucous membranes moist *Routine Neck Exam Neck: Present supple *Routine Respiratory Exam Respiratory: Present CTA bilaterally *Routine Cardiovascular Exam Cardiovascular: Present RRR *Routine Abdominal Exam Abdominal: Present soft and normoactive bowel sounds; Absent tenderness *Routine Rectal Exam Rectal:: deferred *Routine Genitalia Exam Genitalia:: deferred *Routine Extremities Exam Extremities: Absent cyanosis, clubbing or edema *Routine Skin Exam Skin: Present warm; Absent rash *Routine Neurological Exam Neurological: Present alert and oriented X3 Assessment and Plan *Assessment and plan (1) Personal history of adenomatous and serrated colon polyps: Status: Acute Category: Medical Code(s): Z86.0101 - Personal history of adenomatous and serrated colon polyps (2) Screening for colon cancer: Status: Acute Category: Medical Code(s): Z12.11 - Encounter for screening for malignant neoplasm of colon (3) Family history of Crohn's disease: Status: Acute Category: Medical Code(s): Z83.79 - Family history of other diseases of the digestive system Plan A/P: 1. Personal history of adenomatous colon polyps is the preprocedural diagnosis. The patient will be anesthetized/sedated using MAC sedation. The patient has been seen and examined. Cardiac and lung assessment prior to the examination is stable. Proceed with planned screening colonoscopy.
[2025-06-20 07:46] VITALS: BP 155/84; PULSE 68; RESP 18; TEMP 36.4; O2SAT 96
[2025-06-20 08:01] LABS: POC Glucose,Bedside 123 (70-110)
[2025-06-20] MEDS: LACTATED RINGERS 1000ML 1,000 ML 50 ML IV (08:01)
--- NOTE | 2025-06-20 08:07 | EXP.ANES.CKL ---
[facility] Disclaimer: The information contained in this section may have been updated after the patient was seen, as this information can be updated by other users. Medical History Angina pectoris HLD (hyperlipidemia) Coronary artery disease Diabetes mellitus, type 2 Hyperlipidemia Hypertension History of chest pain Surgical History History of hysterectomy History of cholecystectomy Family History Other Family history of MS (multiple sclerosis) Family history of cancer Family history of diabetes mellitus type II Social History (Updated 06/20/25 @ 07:59 by Caroline Gill RN) Smoking Status: Never smoker second hand exposure: No alcohol intake: never counseling provided: provider counseling substance use type: denies use current occupational status: retired Travel in the last 8 weeks?: None household members: none housing: house lives independently: Yes marital status: education level: high school service: No current occupational exposures/hazards: No caffeine: No do you feel safe at home: Yes victim of physical abuse: No victim of emotional abuse: No victim of sexual abuse: No would you like helpful sources: No Have you lived/traveled outside [place] in past 30 days?: No Contact w/someone who lives/traveled outside [place] past 30 days?: No Exposure to someone with infectious disease in past 14 days?: No Do you have a fever (greater than 100.4 F or 38 C)?: No Have you tested positive for COVID-19?: No Exposed to someone with COVID-19 in past 14 days?: No Do you have a sore throat?: No Do you have a cough?: No Do you have any weakness?: No Are you experiencing any nausea/vomitting?: No Do you have any diarrhea?: No Are you experiencing any unusual bleeding?: No Do you have any muscle aches/pain?: No Do you have any abdominal pain?: No Are you experiencing loss of taste or smell?: No [facility] Anesthesia Checklist Patient Identification Patient Identification: Arm Band Structural Data Admitted From: Home Planned Operative Procedure/s: Colonoscopy Consent for Planned Operative Procedure(s) Verified: Yes Verified Documents: Surgical Consent and History and Physical NPO Status Verified Time NPO: 00:00 Additional verifications Anesthesia Reactions: No Hx Blood Transfusions: No Blood Transfusion Reaction: No Airway Assessment Mallampati Score:: Class II C-Spine Mobility Assessed: Yes TMJ Mobility Assessed: Yes Dentition: Good Dentition (upper dentures) Neurological Assessment Level of Consciousness: Awake, Alert and Appropriate Anesthesia Plan Anesthesia Risk discussed: Yes Anesthesia Plan: Verified ASA Class: II Anesthesia Type: MAC
--- NOTE | 2025-06-20 08:35 | P.PCN_ITS ---
[facility] Procedure Note Date: 06/20/25 Time: 08:54 Procedure Note:: Colonoscopy Procedure Report: Colonoscopy with cold snare polypectomy Endoscopist: Brown Sanders II, MD Referring physician: Issa Ribera MD Date of Procedure: June 20, 2025 Equipment: Olympus [id number] adult colonoscope Sedation: MAC sedation Indication: Mrs. Bowen is a 75-year-old female who is here for follow-up screening/surveillance colonoscopy. She did have a colonoscopy with nh in 2016 and had 5 polyps (tubular adenomas x 5) which were removed. Her last colonoscopy in 2021 (Ronan Fink MD) revealed 3 polyps (tubular adenomas x 2/hyperplastic polyp x 1) which were removed. The patient's sister has Crohn's disease. The patient has been having some left lower quadrant abdominal pain and discomfort related to obstipation/incomplete defecation. She does states that she has regular bowel movements but has incomplete bowel evacuation. This often occurs after meals and she gets some bloating but no gassiness. She reports no rectal bleeding, weight loss or family history of colon cancer. Procedure: Prior to the procedure, a history and physical exam was performed, and patient's medications and allergies were reviewed. The risks, benefits and alternatives of the sedation and procedure were discussed with the patient. All questions were answered and informed consent was obtained. The patient was brought to the procedure room. Patient identification and proposed procedure were verified by the physician and the nurse. The patient was placed in a left lateral decubitus position and the scope was passed under direct vision. Throughout the procedure, the patient's blood pressure, pulse, and oxygen saturations were monitored continuously. The colonoscopy was accomplished without difficulty. The patient tolerated the procedure well. Findings: On digital rectal examination there was normal rectal tone. There were no external hemorrhoids. The colonoscope was introduced through the anal canal to the rectum and advanced to the cecum. The ileocecal valve and appendiceal orifice were identified. The scope was advanced a short distance into the ileum which appeared grossly normal. The scope was then withdrawn into the colon. There were 2 polyps (cecum x 1 (6 mm) and ascending x 1 (5 mm)). These were both removed via cold snare polypectomy. The remaining cecum, ascending and transverse colon and mucosa were grossly normal. There were scattered diverticuli throughout the descending and sigmoid colon (LEFT colon). The rectum itself was normal. Upon retroflexion within the rectum there were grade 1-2 internal hemorrhoids. The preparation was excellent throughout with [place] Preparation Score of 9. The cecal time was 12 minutes. Impression: 1. Colonic polyps x 2 (5 and 6 mm) 2. Left-sided diverticulosis 3. Grade 1-2 internal hemorrhoids Plan: I will follow-up the polyp histology and recommend repeat surveillance colonoscopy again in 5 years (certainly based upon good health and desire to continue preventative surveillance). I would encourage dietary measures and a fiber bowel regimen on a regular basis.
[2025-06-20 08:56] VITALS: BP 96/54; PULSE 66; RESP 16; TEMP 36.3; O2SAT 93
[2025-06-20 09:06] VITALS: BP 91/53; PULSE 66; O2SAT 94
[2025-06-20 09:16] VITALS: BP 123/83; PULSE 61; O2SAT 95
[2025-06-20 09:26] VITALS: BP 122/65; PULSE 60; RESP 18; O2SAT 95
== END 2025-06-20 08:56 | disposition home or self-care (01) ==
PROVIDERS: PCP Internal Medicine; Visit Provider Internal Medicine Gastroenterology
PROC: 0DJD8ZZ Inspection of Lower Intestinal Tract, Via Natural or Artificial Opening Endoscopic (ICD-10-PCS; CPT 45378; principal; 2025-06-20 08:30)
DX: Z12.11 Encounter for screening for malignant neoplasm of colon (principal); D12.0 Benign neoplasm of cecum; D12.2 Benign neoplasm of ascending colon; K57.30 Diverticulosis of large intestine without perforation or abscess without bleeding; K64.0 First degree hemorrhoids; K64.1 Second degree hemorrhoids; Z86.0101 Personal history of adenomatous and serrated colon polyps; Z83.79 Family history of other diseases of the digestive system; I25.10 Atherosclerotic heart disease of native coronary artery without angina pectoris; E11.9 Type 2 diabetes mellitus without complications; E78.5 Hyperlipidemia, unspecified; I10 Essential (primary) hypertension; Z88.1 Allergy status to other antibiotic agents; Z79.899 Other long term (current) drug therapy
CPT/HCPCS: 45385; 82962; J2003; J2704; J7120